=== PATIENT | male | born 1960 | race Two or more races ===

== ENCOUNTER 2018-11-12 19:17 | Emergency (ER) | payer MEDICARE, MEDICAID ==
[~2018-11-12] VITALS: Ht 177.8 cm; Wt 88.5 kg
--- NOTE | 2018-11-12 19:25 | NUR ---
BIBRA81 FROM HOME C/O NR CP WITH SOB. PT IS AAOX4. RR EVEN AND UNLABORED. SKIN WARM AND DRY. PT PLACED ON PRODUCTION MACHINE COMPUTER OPERATOR AND POX. PT SAFETY AND COMFORT MEASURES IN PLACE. BEDSIDE FOR EVAL. GIVEN NITRO X 1 IN FIELD BY EMS. WILL CONITNUE TO MONITOR PT
[2018-11-12] MEDS ORDERED: LORAZEPAM 1 MG TABLET PO ONE (19:30)
[2018-11-12] MEDS ORDERED: LORAZEPAM 1 MG TABLET ONE (19:54)
--- NOTE | 2018-11-12 19:58 | NUR ---
EMT BEDSIDE FOR ECG
--- NOTE | 2018-11-12 20:05 | NUR ---
CLOTH GRADER BEDSIDE FOR BLOOD DRAW
[2018-11-12 20:49] LABS: BASOPHILS % (AUTO) 0.7 % (0.0-2.0); EOSINOPHILS % (AUTO) 0.6 % (0.0-6.0); HEMATOCRIT 43 % (39-51); HEMOGLOBIN 14.7 g/dL (13.5-17.5); LYMPHOCYTES % (AUTO) 36.3 % (20.0-44.0); MEAN CORPUSCULAR HGB CONC 34 g/dl (31.0-36.0); MEAN CORPUSCULAR VOLUME 94 fL (80-96); MONOCYTES # (AUTO) 0.6 /CMM (0.1-1.30); MONOCYTES % (AUTO) 10.5 % (2.0-12.0); NEUTROPHILS # (AUTO) 2.9 /CMM (1.8-8.9); NEUTROPHILS % (AUTO) 51.9 % (43.0-81.0); PLATELET COUNT (AUTO) 181 /CMM (150-450); WHITE BLOOD COUNT (AUTO) 5.5 K/uL (4.3-11.0)
[2018-11-12 21:00] LABS: CALCIUM, SERUM 8.9 mg/dL (8.5-10.1); CARBON DIOXIDE 22 mmol/L (21-32); CHLORIDE 93 mmol/L (98-107); CREATININE 0.9 mg/dL (0.6-1.3); GLUCOSE 104 mg/dL (74-106); POTASSIUM 3.8 mmol/L (3.5-5.1); SODIUM SERUM 124 mmol/L (136-145); UREA NITROGEN, BLOOD 7 mg/dL (7-18)
[2018-11-12] MEDS ORDERED: HYDROCODONE/APAP 10/325MG 1 EA TABLET ONE (21:56)
[2018-11-12] MEDS ORDERED: HYDROCODONE/APAP 10/325MG 1 EA TABLET PO ONE (22:00)
--- NOTE | 2018-11-12 22:40 | NUR ---
DIGITAL FORENSICS EXAMINER BEDSIDE FOR BLOOD DRAW. PT RESTING IN BED WITH NO S/S OF ACUTE DISTRESS
--- NOTE | 2018-11-12 22:55 | NUR ---
PT REFUSED BLOOD DRAW
--- NOTE | 2018-11-12 23:00 | NUR ---
Patient does not wish to proceed with medical care recommended by (GISELLE ). Patient given information related to possible complications, up to and including , which could occur as a result of leaving the hospital at this time. Patient verbalizes understanding of risks involved due to leaving against medical advice. Patient has signed AMA form. PT AMBULATED OUT WITH STEADY GAIT NOTED. MD HERNANDEZ
[2018-11-12 23:25] VITALS: BP 135/84
== END 2018-11-12 23:26 | disposition left against medical advice (07) ==
LOC: ER 19:19
DX: R07.89 Other chest pain (principal); F41.9 Anxiety disorder, unspecified; R06.02 Shortness of breath; I10 Essential (primary) hypertension; E11.9 Type 2 diabetes mellitus without complications; I25.2 Old myocardial infarction; Z95.818 Presence of other cardiac implants and grafts; Z88.6 Allergy status to analgesic agent; Z60.2 Problems related to living alone; Z85.818 Personal history of malignant neoplasm of other sites of lip, oral cavity, and pharynx
CPT/HCPCS: 36415; 71045-TC; 80048-TC; 84484-TC; 85025-TC; 85730-TC

== ENCOUNTER 2018-12-29 18:00 | Inpatient (IN) | payer MEDICARE, MEDICAID ==
[~2018-12-29] VITALS: Ht 177.8 cm; Wt 86.7 kg
--- NOTE | 2018-12-29 18:00 | NUR ---
BIB RA 82 FROM HOME,ABDOMINAL PAIN TODAY, DIARRHEA X 3 DAYS. TO ER BED 1, HOOKED TO MONITOR, CHANGED TO GOWDeborah, AWAITING MD MENDEZ.
--- NOTE | 2018-12-29 18:10 | NUR ---
ANTOINE TAYLOR AT BEDSIDE
[2018-12-29] MEDS ORDERED: MORPHINE SULFATE INJ 4 MG/ML DISP.SYRIN ONE (18:27)
[2018-12-29] MEDS ORDERED: ONDANSETRON HCL/PF 4 MG/2 ML VIAL ONE (18:27)
[2018-12-29] MEDS ORDERED: MORPHINE SULFATE INJ 2 MG/ML DISP.SYRIN IV ONE (18:30)
[2018-12-29] MEDS ORDERED: ONDANSETRON HCL/PF 4 MG/2 ML VIAL IVP ONE (18:30)
[2018-12-29] MEDS ORDERED: IV NS 0.9% 1,000 ML BAG IV ONE (18:30)
[2018-12-29 18:58] LABS: BASOPHILS % (AUTO) 0.5 % (0.0-2.0); EOSINOPHILS % (AUTO) 0.8 % (0.0-6.0); HEMATOCRIT 43 % (39-51); HEMOGLOBIN 15.1 g/dL (13.5-17.5); LYMPHOCYTES # (AUTO) 2.6 /CMM (0.8-4.8); LYMPHOCYTES % (AUTO) 36.6 % (20.0-44.0); MEAN CORPUSCULAR HGB CONC 35 g/dl (31.0-36.0); MEAN CORPUSCULAR VOLUME 93 fL (80-96); MONOCYTES # (AUTO) 0.9 /CMM (0.1-1.30); MONOCYTES % (AUTO) 12.3 % (2.0-12.0); NEUTROPHILS # (AUTO) 3.5 /CMM (1.8-8.9); NEUTROPHILS % (AUTO) 49.8 % (43.0-81.0); PLATELET COUNT (AUTO) 205 /CMM (150-450); RED BLOOD CELL COUNT(AUTO) 4.62 MIL/uL (4.5-6.0); WHITE BLOOD COUNT (AUTO) 7.1 K/uL (4.3-11.0)
[2018-12-29 19:07] LABS: CALCIUM, SERUM 9.1 mg/dL (8.5-10.1); CARBON DIOXIDE 25 mmol/L (21-32); CHLORIDE 90 mmol/L (98-107); CREATININE 1.4 mg/dL (0.6-1.3); GLUCOSE 120 mg/dL (74-106); POTASSIUM 4.3 mmol/L (3.5-5.1); SODIUM SERUM 122 mmol/L (136-145); UREA NITROGEN, BLOOD 14 mg/dL (7-18)
[2018-12-29 19:13] LABS: ALANINE AMINOTRANSFERASE 29 U/L (12-78); ALKALINE PHOSPHATASE 73 U/L (46-116); ASPARTATE AMINOTRANSFERASE 26 U/L (15-37); BILIRUBIN,DIRECT 0.1 mg/dL (0.0-0.2); BILIRUBIN,TOTAL 0.4 mg/dL (0.2-1.0); LIPASE 232 U/L (73-393); TOTAL PROTEIN, SERUM 7.8 g/dL (6.4-8.2)
[2018-12-29 19:40] LABS: APPEARANCE,URINE Slightly Cloudy (CLEAR); BILIRUBIN,URINE Negative (NEGATIVE); BLOOD, URINE Negative Ery/uL (NEGATIVE); KETONES,URINE Negative (NEGATIVE); LEUKOCYTE ESTERASE ,URINE Negative (NEGATIVE); NITRITE, URINE Negative (NEGATIVE); PH,URINE 6.5 (5.0-8.0); PROTEIN,URINE Negative (NEGATIVE); UGLUCOSE Negative (NEGATIVE); UROBILINOGEN,URINE 0.2 EU/dL (0.2)
[2018-12-29 19:43] LABS: COLOR,URINE Light yellow (YELLOW)
--- NOTE | 2018-12-29 19:46 | NUR ---
PT TAKEN TO CT.
--- NOTE | 2018-12-29 19:50 | NUR ---
REPORT GIVEN TO MÓNICA OGLESBY FOR FIDE
[2018-12-29] MEDS ORDERED: DEXAMETHASONE SOD PHOSPHATE 10 MG/ML VIAL ONE (19:57)
[2018-12-29] MEDS ORDERED: DEXAMETHASONE SOD PHOSPHATE 10 MG in IV D5W 50 ML IV ONE (20:00)
--- NOTE | 2018-12-29 20:16 | NUR ---
PT RESTING IN BED, NAD NOTED. WILL CONTINUE TO MONITOR.
--- NOTE | 2018-12-29 20:50 | NUR ---
XRAY AT BEDSIDE.
--- NOTE | 2018-12-29 20:52 | NUR ---
CALLED HOUSE SUP FOR TELE BED
[2018-12-29] MEDS ORDERED: HYDROMORPHONE 1 MG/1 ML DISP.SYRIN ONE (20:55)
[2018-12-29] MEDS ORDERED: HYDROMORPHONE INJ 0.5 MG/0.5 ML SYRINGE IV ONE (21:00)
--- NOTE | 2018-12-29 21:00 | NUR ---
PT RESTING IN BED, NAD NOTED. WILL CONTINUE TO MONITOR.
--- NOTE | 2018-12-29 21:26 | NUR ---
TELE BED 312-2 GIVEN
--- NOTE | 2018-12-29 21:35 | NUR ---
REPORT GIVEN TO ASHLEY OGLESBY FOR FIDE.
--- NOTE | 2018-12-29 21:48 | NUR ---
DR MCCORMACK WAS PAGED. AWAITING HER RETURN CALL
--- NOTE | 2018-12-29 21:56 | NUR ---
ATTEMPTED TO GET MEDICATION LIST, PT DOES NOT HAVE LIST. PT STATES THE LIST IS IN THE CHART. UNABLE TO LOCATE LIST.
[2018-12-29 22:00] VITALS: BP 133/91
--- NOTE | 2018-12-29 22:00 | NUR ---
ADMISSION NOTES: RECEIVED REPORT FROM MÓNICA OGLESBY. PT BROUGHT TO THE UNIT VIA GURNEY, PT LEGALLY BLIND, CLAIMED TO SPEAK AMHARIC, PORTUGUESE AND CONVERSE WELL IN BELARUSIAN, ON RA, RESPIRATION EVEN AND UNLABORED. C/O ABDL PAIN DESPITE RECEIVING PAIN MEDS IN ER. ORIENTED PT TO UNIT POLICY AND HOURLY ROUNDING. PT ALREADY ASKING FOR FOOD AND PAIN MEDICATION, INFORMED PT THERE WERE NO ORDERS YET AT THIS TIME, WILL UPDATE ONCE THERE'S ADMITTING ORDER FROM MD. INTERVIEWED PT REGARDING HIS JARED MEDICATIONS THERE'S NOTHING INPUTTED BY OCEANOGRAPHY PROFESSOR, ALSO NO LIST FROM ER. PT HANDED HIS OWN TRIUMEQ MEDICINE FOR HIV, INFORMED PT THIS NEEDS TO BE SEND TO PHARMACY IN AM. INFORMED PT THAT HOME MEDS WERE IMPORTANT PART OF THE ASSESSMENT/INTERVIEW SO MD CAN CONTINUE OR DISCONTINUE MEDICATIONS THAT ARE EFFECTIVELY WORK FOR THE CASE. PER PT HE CLAIMED, WE ALREADY HAVE THE LIST IN THE COMPUTER, UPON CHECKING THE PREVIOUS ENCOUNTERS/RECORDS, NOTHING WAS OBTAINED, INFORMED PT ABOUT THIS, PT EXPRESSES HIS DISAPPOINTMENT. HE ALSO AFFIRMLY BELIEVED THAT THE PHARMACIST HAVE HIS MED LIST HE STATED THAT THE PHARMACISTS EVEN TOLD HIM THAT THEY NO LONGER NEED HIS MED LIST BECAUSE THEY ALREADY HAVE COPY. VS TAKEN AND RECORDED BY BLOCKER AND POLISHER GOLD WHEEL, INVENTORY OF BELONGINGS COMPLETED BY BLOCKER AND POLISHER GOLD WHEEL. SKIN ASSESSMENT PERFORMED. PT HAS LEFT ANKLE IV ACCESS G20 ON HL, AREA FREE FROM SWELLING OR BRUISING. PT CLAIMING BOTH OF HIS LEGS ARE PAINFUL WITH LEG CRAMPS, OFFERED WARM BLANKET FOR THE PT. FRANSISCA HUNT WITNESS THROUGHOUT THE CONVERSATION/ADMISSION INTERVIEW DOCUMENTATION. SAFETY PRECAUTIONS FOR FALL INITIATED, CALL LIGHT IN REACH, WILL CONTINUE MONITORING PT.
[2018-12-29 22:15] VITALS: BP 133/91
--- NOTE | 2018-12-29 22:15 | NUR ---
RN NOTES: ALL INFORMATION GATHER FROM INTERVIEWING PT WILL BE UTILIZED TO COMPLETE ADMISSION DOCUMENTATION, WILL ENTER ALL HOME MED LIST OF THE PT. PT ON CARDIAC DIET AND REQUESTING PUDDING AND JUICE, FRANSISCA HUNT PROVIDED SNACK TO THE PT, CONSUMED 100%.
[2018-12-29] MEDS ORDERED: MAG HYDROX/AL HYDROX/SIMETH 30 ML UDC PO PRN (22:30)
[2018-12-29] MEDS ORDERED: MAGNESIUM HYDROXIDE 30 ML UDC PO PRN (22:30)
[2018-12-29] MEDS ORDERED: ACETAMINOPHEN 325 MG TABLET PO PRN (22:30)
[2018-12-29] MEDS ORDERED: ONDANSETRON HCL/PF 4 MG/2 ML VIAL IVP PRN (22:30)
[2018-12-29] MEDS ORDERED: Z GUARD REMEDY 2 OZ OINT TP PRN (22:30)
[2018-12-29] MEDS ORDERED: HYDROCODONE/APAP 5/325MG 1 EACH TABLET PO PRN (22:30)
[2018-12-29] MEDS ORDERED: LISI10TA5 PO (22:53)
[2018-12-29] MEDS ORDERED: [UNRECOGNIZED DRUG - OTHER] PO (22:53)
[2018-12-29] MEDS ORDERED: ABAC1TAB15 PO (22:53)
[2018-12-29] MEDS ORDERED: ZOLP10TA2 PO (22:56)
[2018-12-29] MEDS ORDERED: LORA1TAB PO (22:56)
[2018-12-29] MEDS ORDERED: CARI350T PO (22:56)
[2018-12-29] MEDS ORDERED: ROSU10TA2 PO (22:56)
[2018-12-29] MEDS ORDERED: OXYC-128 PO (22:56)
--- NOTE | 2018-12-29 23:02 | NUR ---
RN NOTES: ASKED PT ABOUT THE HOME MEDICATIONS, HE CLAIMED SOMEONE FROM ER ALREADY ASKED HIM ABOUT IT AND HE GAVE HIS LIST TO THAT CERTAIN HEADING MAKER. INFORMED PT I HAVE NOT RECEIVE ANYTHING FROM ER AND THAT NOTHING WAS ENTERED IN THE COMPUTER. THEN THE PT STATED " THE PHARMACIST KNEW MY MEDICATIONS, BEEN HERE MANY TIMES, AND THEY HAVE MY LIST", INFORMED PT THAT THERE'S NO LIST PROVIDED FROM THE PHARMACY UNLESS SOMEONE ENTER ALL THOSE MEDICATIONS IN THE COMPUTER, BUT SO FAR I HAVE NO INFORMATION. PT CLAIMED HE'S TAKING THE FF MEDS AND WHATEVER MEDS HE FORGOT SOMEONE WILL BRING IT IN AM. LISINOPRIL 10MG PO DAILY CARDIOVERA 10MG PO DAILY CRESTOR 10MG PO DAILY SOMA 350MG TAB PO 3X A DAY FOR MUSCLE CRAMPS OF LEG AND FEET? AMBIEN 10MG PO AT 10PM/HS LORAZEPAM 1MG TAB PO 3X A DAY 8AM/12NOON/6PM(1800) PERCOCET 5/325 MG TAB PO Q4HRS FOR LEG AND FOOT PAIN (PT CLAIMED ITS SCHEDULED Q4, NOT PRN) TRIUMEQ 600/50/300MG TAB DAILY WITH MEALS PT CLAIMED HE'S NOT ALLOWED TO DRINK REGULAR WATER IT DILUTES MORE HIS SODIUM, ONLY JUICE IS ALLOWED ACCORDING TO PT LINOLEUM FLOOR LAYER EPIC MADE AWARE OF ALL THE HOME MED LIST OF THE PATIENT, DIRECTOR SERVICE AWARE
--- NOTE | 2018-12-29 23:30 | NUR ---
RN NOTES: MD DIRECTOR OF ORTHOPEDICS CURRENTLY IN THE UNIT, WENT TO PT'S ROOM, DID H&P, EXPLAIN PLAN OF CARE, PT IN BED, LISTENING, AGREE WITH PLAN OF CARE, NO OTHER COMPLAINTS
[2018-12-30] VITALS (7 sets, daily range): BP systolic 100–131; BP diastolic 61–81
[2018-12-30] MEDS: IV NS 0.9% 1,000 ML IV PRN ×2 (00:03→18:07)
--- NOTE | 2018-12-30 00:05 | NUR ---
PRN NORCO: PT C/O 04/25 ABDL PAIN REQUESTING FOR MEDICATION, PRN NORCO 5/325 MG TAB PO ADMINISTERED AT THIS TIME, WILL CONTINUE TO MONITOR AND REASSESS. PT CLAIMING THAT ER PERSONNEL PROMISED HIM THAT ONCE HE GET TO THE UNIT HE WILL BE RECEIVING MORPHINE INJECTIONS FOR PAIN.
[2018-12-30] MEDS: ENOXAPARIN SODIUM 40 MG/0.4 ML DISP.SYRIN SQ SCH ×2 (00:08→21:07)
--- NOTE | 2018-12-30 00:10 | NUR ---
RN NOTES: NEW ORDERS SEEN IN DEC, WILL REVIEW. PUT IN NEW ORDERS FOR THE PT
--- NOTE | 2018-12-30 00:39 | NUR ---
RN NOTES: RECEIVED CALL FROM PHARM POULTRY PACKER, REGARDING ORDERS FOR THE PT, CLARIFYING IF MD WANTS TO CONTINUE SOMA, PERCOCET,AMBIEN,LORAZEPAM SCHEDULED, SPOKED TO MD POULTRY PACKER, PER MD TO DC NORCO, SOMA, LORAZEPAM, AND CHANGE PERCOCET AND AMBIEN TO PRN ONLY. INFORMED MD THAT PT RECEIVED NORCO AT 0000MN, PER MD TO GIVE NEXT PERCOCET AFTER 6HRS (WILL BE 0600AM). INFORMED MD ABOUT PT ASKING FOR MORPHINE AND THAT SOMEONE FROM ER PROMISE HIM HE WILL RECEIVE IT HERE IN THE FLOOR, PER MD, NO MORPHINE FOR THE PT. PER OKAY TO GIVE SLEEPING PILL NOW FOR THE PT HE'S BEEN REQUESTING FOR IT. EVERYTHING RELAYED TO PHARM POULTRY PACKER.
[2018-12-30] MEDS: ZOLPIDEM TARTRATE 10 MG TABLET PO PRN (01:17)
--- NOTE | 2018-12-30 01:19 | NUR ---
PRN AMBIEN: PT REQUESTED FOR AMBIEN, PER MD VALENCIA TO GIVE, PRN AMBIEN 10MG TAB PO ADMINISTERED AT THIS TIME
--- NOTE | 2018-12-30 01:28 | NUR ---
RN NOTES: PT COMPLAINING OF SO MUCH PAIN, 07/26 ABDOMEN AREA, PAGED GUARD DANCE HALL MD, STATED FROM PREVIOUS CONVERSATION TO GIVE PERCOCET AT 0600AM, CASE CHECKER MADE AWARE
[2018-12-30] MEDS ORDERED: MORPHINE SULFATE INJ 2 MG/ML DISP.SYRIN IV ONE (01:30)
--- NOTE | 2018-12-30 01:34 | NUR ---
RN NOTES: MD PANEL LAY UP WORKER CURRENTLY IN THE UNIT, RELAYED THE PT'S COMPLAIN OF PAIN, PER MD TO GIVE ONE TIME DOSE OF 1MG MORPHINE IVP, SHE STATED THERE WILL BE NO OTHER IV PAIN MEDICATION TO BE GIVEN SCHEDULE,AND SEEMS LIKE PT IS A SEEKER
--- NOTE | 2018-12-30 01:37 | NUR ---
RN NOTES: SPOKED WITH PHARM TILE PRESSER TO VERIFY THE ORDER
--- NOTE | 2018-12-30 01:49 | NUR ---
PRN MORPHINE: ONE TIME ORDER FOR MORPHINE IVP 1MG ADMINISTERED AT THIS TIME. WITNESS BY ANOTHER RN OSMAR. AFTER GIVING THE SAID MEDICATION, PT STATED PLEASE TELL ALAS TO CHANGE MY NURSE, INFORMED PT IT WILL BE RELAYED TO ANIMAL COP.
--- NOTE | 2018-12-30 02:05 | NUR ---
RN CLOSING NOTES: PT REQUESTED FOR A NEW RN, STOREHOUSE CLERK AWARE, WENT TO PT'S ROOM AND SPEAK WITH THE PT. REPORT GIVEN TO ASHLEY OGLESBY FOR CONTINUITY OF CARE.
--- NOTE | 2018-12-30 02:15 | NUR ---
SPEECH THERAPIST NOTE: RECEIVE REPORT FROM RENY STONE FOR CONTINUATION OF CARE. PATIENT RESTING IN BED, NO ACUTE DISTRESS NOTED AT THIS TIME. WILL CONTINUE TO MONITOR.
[2018-12-30] MEDS: oxyCODONE/APAP (5/325 MG) 1 UDTAB TABLET PO PRN ×5 (04:06→22:50)
--- NOTE | 2018-12-30 04:10 | NUR ---
PERCUSSION TUNER NOTE: PATIENT COMPLAINS OF PAIN TO BLE /, PERCOCET 5/325MG 1 TAB ORAL GIVEN PER MD ORDER. WILL CONTINUE TO MONITOR.
--- NOTE | 2018-12-30 06:10 | NUR ---
CIVIL DESIGN TECHNICIAN NOTE: PATIENT RESTING IN BED, NO ACUTE DISTRESS NOTED AT THIS TIME. BREATHING EVEN AND UNLABORED, NO SOB NOTE. IV TO LEFT FOOT IN PLACE, INFUSING NS AT 75ML/HR. BED LOCKED AND IN LOWEST POSITION, CALL LIGHT IN REACH, WILL ENDORSE TO DAY NURSE TO CONTINUE WITH PLAN OF CARE.
[2018-12-30 06:24] LABS: BASOPHILS % (AUTO) 0.1 % (0.0-2.0); HEMATOCRIT 42 % (39-51); HEMOGLOBIN 14.4 g/dL (13.5-17.5); LYMPHOCYTES # (AUTO) 1.4 /CMM (0.8-4.8); LYMPHOCYTES % (AUTO) 19.7 % (20.0-44.0); MEAN CORPUSCULAR HGB CONC 35 g/dl (31.0-36.0); MEAN CORPUSCULAR VOLUME 93 fL (80-96); MONOCYTES # (AUTO) 0.2 /CMM (0.1-1.30); MONOCYTES % (AUTO) 3.2 % (2.0-12.0); NEUTROPHILS # (AUTO) 5.5 /CMM (1.8-8.9); PLATELET COUNT (AUTO) 188 /CMM (150-450); RED BLOOD CELL COUNT(AUTO) 4.47 MIL/uL (4.5-6.0); WHITE BLOOD COUNT (AUTO) 7.1 K/uL (4.3-11.0)
[2018-12-30 06:36] LABS: ALBUMIN 3.8 g/dL (3.4-5.0); BILIRUBIN,TOTAL 0.4 mg/dL (0.2-1.0); CALCIUM, SERUM 9.3 mg/dL (8.5-10.1); CREATININE 1.2 mg/dL (0.6-1.3); MAGNESIUM 1.8 mg/dL (1.8-2.4); PHOSPHORUS 2.8 mg/dL (2.5-4.9); POTASSIUM 5.1 mmol/L (3.5-5.1); TOTAL PROTEIN, SERUM 7.6 g/dL (6.4-8.2)
[2018-12-30 06:43] LABS: FREE PSA 0.13 ng/mL (0.00-45); PROSTATE SPECIFIC ANTIGEN SCR 0.53 ng/mL (0.00-4.00); THYROID STIMULATING HORMONE 0.224 uIU/mL (0.358-3.74)
[2018-12-30] MEDS: METRONIDAZOLE 500 MG TABLET PO SCH ×2 (08:50→16:51)
[2018-12-30] MEDS: CIPROFLOXACIN HCL 500 MG TABLET PO SCH ×2 (08:51→21:06)
[2018-12-30] MEDS: LISINOPRIL (10MG) 10 MG TABLET PO SCH (08:51)
--- NOTE | 2018-12-30 08:57 | NUR ---
PATIENT REFUSED TO GIVE HIS MEDICATION BOTTLES. PER PATIENT, "THE LAST TIME I GAVE IT, IT GOT LOST". NOTIFIED PHARMACIST, EARL, SHE SAID "ITS OK".
[2018-12-30] MEDS: CARVEDILOL 12.5 MG TABLET PO SCH ×2 (08:58→17:00)
[2018-12-30] MEDS ORDERED: CARISOPRODOL 350 MG TABLET PO SCH (09:00)
[2018-12-30] MEDS ORDERED: CARVEDILOL 25 MG TABLET PO SCH (09:00)
[2018-12-30] MEDS ORDERED: PANTOPRAZOLE 40 MG VIAL IV SCH (09:00)
[2018-12-30] MEDS ORDERED: Medication Not On Formulary EA (Rosuvastatin Calcium (Crestor) 1 TAB) PO SCH (09:00)
[2018-12-30] MEDS ORDERED: CARVEDILOL 12.5 MG TABLET PO SCH (09:00)
[2018-12-30] MEDS ORDERED: Abacavir/Dolutegravir/Lamivudi (Triumeq Tablet) PO SCH ×2 (09:00→12:00)
[2018-12-30] MEDS ORDERED: LORAZEPAM 1 MG TABLET PO SCH (09:00)
[2018-12-30] MEDS: PANTOPRAZOLE 40 MG TABLET.DR PO SCH (09:40)
--- NOTE | 2018-12-30 11:51 | NUR ---
dr parker at bedside. talking to the patient. per dr parker, continue home meds soma and ativan as ordered.
[2018-12-30] MEDS: Abacavir/Dolutegravir/Lamivudi (Triumeq Tablet) PO SCH (12:00)
[2018-12-30] MEDS: LORAZEPAM 1 MG TABLET PO PRN ×2 (12:49→21:15)
[2018-12-30] MEDS: CARISOPRODOL 350 MG TABLET PO SCH ×2 (12:49→16:51)
--- NOTE | 2018-12-30 12:58 | NUR ---
rn notes per pharmacist reshma,patient triumeq is . held medication for now. spoke with patient and patient said his daughter will provide it tomorrow. per patient, he spoke with his infectious disease doctor and said that its ok to skip triumeq for a day.
--- NOTE | 2018-12-30 15:44 | NUR ---
URINE SPECIMEN COLLECTED, CALLED LAB FOR MOLDED GOODS EMBOSSING PRESS OPERATOR
[2018-12-30] MEDS ORDERED: ATRO2DRO4 EACHEYE (16:37)
[2018-12-30] MEDS ORDERED: PRED5DRO16 EACHEYE (16:37)
[2018-12-30 17:49] LABS: URINE SODIUM, RANDOM 57 mmol/l (40-220)
[2018-12-30 18:01] LABS: OSMOLALITY,URINE 292 mOS/kg (340-1090)
--- NOTE | 2018-12-30 19:07 | NUR ---
RN CLOSING NOTES PATIENT IN STABLE CONDITION. ALL NEEDS ATTENDED AND PROVIDED. ALL DUE MEDICATIONS ADMINISTERED ORDERED. KEPT PATIENT SAFE AND COMFORTABLE. BED IN LOWEST/LOCKED POSITION, SIDERAILS UPX3, CALL LIGHT IN REACH. ENDORSED TO NIGHT RN FOR FIDE.
--- NOTE | 2018-12-30 19:35 | NUR ---
TELE/RN OPENING NOTES PT RECEIVED AWAKE AND ON THE PHONE. ON ROOM AIR, BREATHING EVEN AND UNLABORED. DENIES SOB, NOTES PAIN 4/10 TO BLE BUT AT A TOLERABLE LEVEL AT THIS TIME. PT IS LEGALLY BLIND. ON TELE MONITOR SHOWING SR WITH BBB AND INVERTED T WAVE, HR 61. IV TO LEFT ANKLE PATENT AND INTACT RUNNING IVF ORDERED. IN NO ACUTE DISTRESS AT THIS TIME. BED IN LOW/LOCKED POSITION WITH CALL LIGHT IN REACH. BILATERAL UPPER SIDE RAILS IN PLACE AND HOB ELEVATED. WILL CONTINUE TO MONITOR
[2018-12-30] MEDS: ATORVASTATIN 10 MG TABLET PO SCH (21:06)
[2018-12-31] VITALS: BP 107/69
[2018-12-31] MEDS: ZOLPIDEM TARTRATE 10 MG TABLET PO PRN ×2 (00:17→23:33)
[2018-12-31 04:00] VITALS: BP 109/65
[2018-12-31] MEDS: oxyCODONE/APAP (5/325 MG) 1 UDTAB TABLET PO PRN ×5 (04:02→22:22)
[2018-12-31] MEDS: LORAZEPAM 1 MG TABLET PO PRN ×3 (05:33→23:02)
[2018-12-31 06:35] LABS: CALCIUM, SERUM 9.2 mg/dL (8.5-10.1); CREATININE 1.2 mg/dL (0.6-1.3); PHOSPHORUS 3.3 mg/dL (2.5-4.9); POTASSIUM 4.5 mmol/L (3.5-5.1)
[2018-12-31] MEDS: IV NS 0.9% 1,000 ML IV PRN ×2 (06:50→21:23)
[2018-12-31] MEDS: PANTOPRAZOLE 40 MG TABLET.DR PO SCH (06:50)
--- NOTE | 2018-12-31 06:59 | NUR ---
TELE/RN CLOSING NOTES PT RESTING COMFORTABLY IN BED. ON ROOM AIR, BREATHING EVEN AND UNLABORED. DENIES SOB AND PAIN AT THIS TIME. ON TELE MONITOR SHOWING SR WITH BBB AND INVERTED T WAVE, HR 60'S. PT WITH NO BM DURING SHIFT, UNABLE TO COLLECT SPECIMEN. IV TO LEFT ANKLE PATENT AND INTACT RUNNING IVF ORDERED. NO SIGNIFICANT CHANGES OVERNIGHT. ALL NEEDS MET. PAIN MANAGED THROUGHOUT SHIFT. BED REMAINS IN LOW/LOCKED POSITION WITH CALL LIGHT IN REACH, BILATERAL UPPER SIDE RAILS IN PLACE. WILL ENDORSE TO DAY SHIFT RN FIDE.
--- NOTE | 2018-12-31 07:00 | NUR ---
SEARCH ENGINE OPTIMIZATION SPECIALIST NOTES PATIENT IN BED ALERT ORIENTED X 4, NO ACUTE DISTRESS NOTED. BREATHING UNLABORED. NO SOB NOTED. DENIED ANY PAIN AT THIS TIME. IV ACCESS PATENT AND INTACT, NO REDNESS OR SWELLING NOTED. SAFETY MEASURES IN PLACE. CALL LIGHT WITHIN REACH. WILL CONTINUE TO MONITOR ACCORDINGLY.
[2018-12-31 07:26] LABS: THYROID STIMULATING HORMONE 1.202 uIU/mL (0.358-3.74); URIC ACID 4.1 mg/dL (2.6-7.2)
[2018-12-31 08:00] VITALS: BP 115/78
[2018-12-31] MEDS: CARISOPRODOL 350 MG TABLET PO SCH ×3 (09:10→17:24)
[2018-12-31] MEDS: METRONIDAZOLE 500 MG TABLET PO SCH ×2 (10:00→17:24)
[2018-12-31] MEDS: CIPROFLOXACIN HCL 500 MG TABLET PO SCH ×2 (10:00→21:42)
[2018-12-31] MEDS: LISINOPRIL (10MG) 10 MG TABLET PO SCH (10:01)
[2018-12-31] MEDS: CARVEDILOL 12.5 MG TABLET PO SCH ×2 (10:01→17:00)
--- NOTE | 2018-12-31 11:03 | NUR ---
MS RN NOTES SEEN AND EVALUATED BY DR ARYA GARCIA WITH NEW ORDERS MADE, NOTED AND CARRIED OUT.
--- NOTE | 2018-12-31 12:25 | NUR ---
MS RENY NOTES PATIENT COMPLAINT OF GENERALIZED PAIN 05/26, OFFERED PAIN MEDICATION, PATIENT REFUSED AT THIS TIME. Addendum: 12/31/18 at 2 by ANDREINA TERRY RN NO ACUTE DISTRESS NOTED. VITAL SIGNS STABLE.
[2018-12-31] MEDS: Abacavir/Dolutegravir/Lamivudi (Triumeq Tablet) PO SCH (12:59)
--- NOTE | 2018-12-31 12:59 | NUR ---
MS RN NOTES MEDICATION TRIUMEQ UNAVAILABLE YET, PER PATIENT DAUGHTER TO BRING HOME MEDICATION, DR RADHA KOENIG AWARE.
--- NOTE | 2018-12-31 13:35 | NUR ---
MS RN NOTES PATIENT SITTING IN BED EATING LUNCH, APPEARS CALM AND COMFORTABLE. NEEDS ATTENDED AND ANTICIPATED. SAFETY MEASURES IN PLACE.CALL LIGHT WITHIN REACH.
--- NOTE | 2018-12-31 13:46 | NUR ---
MS RN NOTES VITAL SIGNS TAKEN WITHIN NORMAL LIMITS.
[2018-12-31 16:00] VITALS: BP 123/72
--- NOTE | 2018-12-31 19:00 | NUR ---
MS RN NOTES PATIENT IN BED ALERT ORIENTED X 4, NO ACUTE DISTRESS NOTED. BREATHING UNLABORED. NO SOB NOTED. IV ACCESS PATENT AND INTACT, NO REDNESS OR SWELLING NOTED. NEEDS ATTENDED AND ANTICIPATED. KEPT CLEAN DRY AND COMFORTABLE. DUE MEDICATIONS GIVEN, NO ASE NOTED. SAFETY MEASURES IN PLACE. CALL LIGHT WITHIN REACH. ENDORSED TO NIGHT NURSE FOR CONTINUITY OF CARE.
--- NOTE | 2018-12-31 19:51 | NUR ---
MS RN NOTES RECEIVED PATIENT AWAKE IN BED WITH NO DISTRESS NOTED. CALL LIGHT WITHIN REACH. NO C/O PAIN OR DISCOMFORT. PERIPHERAL LINE INTACT AND PATENT. BED IN LOW LOCK SETTING. ALL BELONGINGS NEAR BEDSIDE. WILL CONTINUE TO MONITOR.
[2018-12-31 20:00] VITALS: BP 117/69
[2018-12-31] MEDS: ENOXAPARIN SODIUM 40 MG/0.4 ML DISP.SYRIN SQ SCH (21:41)
[2018-12-31] MEDS: ATORVASTATIN 10 MG TABLET PO SCH (21:42)
[2019-01-01] MEDS: oxyCODONE/APAP (5/325 MG) 1 UDTAB TABLET PO PRN ×3 (02:28→10:39)
[2019-01-01 07:13] LABS: CREATININE 1.3 mg/dL (0.6-1.3); MAGNESIUM 1.9 mg/dL (1.8-2.4); PHOSPHORUS 3.5 mg/dL (2.5-4.9)
--- NOTE | 2019-01-01 07:38 | NUR ---
MS RN OPENING NOTES RECEIVED PT RESTING IN BED, AWAKE. A/O X 4, ABLE TO VERBALLY COMMUNICATE; LEGALLY BLIND. TOLERATING RA, WITH NO SIGNS OF ACUTE RESPIRATORY DISTRESS. IVF NS TO LEFT ANKLE G20 AT 75ML/HR, INTACT AND OPERATIONAL. KEPT BED IN LOW, LOCKED POSITION WITH SR X2. CALL LIGHT WITHHIN REACH. WILL CONTINUE PLAN OF CARE.
[2019-01-01 08:00] VITALS: BP 109/79
--- NOTE | 2019-01-01 08:13 | NUR ---
MS RN OPENING NOTES PT RESTING IN BED RESTING. PT A/O X 4, AND ABLE TO MAKE NEEDS KNOWN. PT LEGALLY BLIND. NO SIGNS OF ACUTE RESPIRATORY DISTRESS OR SOB NOTED THROUGHOUT SHIFT. RESPIRATIONS EVEN AND UNLABORED. IVF NS TO LEFT ANKLE G20 AT 75ML/HR, PATENT AND INTACT. BED IN LOW, LOCKED POSITION WITH SR UP X2. CALL LIGHT WITHIN REACH. WILL ENDORSE TO ONCOMING NURSE FOR FIDE.
[2019-01-01] MEDS: METRONIDAZOLE 500 MG TABLET PO SCH (08:15)
[2019-01-01] MEDS: CIPROFLOXACIN HCL 500 MG TABLET PO SCH (08:15)
[2019-01-01] MEDS: PANTOPRAZOLE 40 MG TABLET.DR PO SCH (08:15)
[2019-01-01] MEDS: CARISOPRODOL 350 MG TABLET PO SCH (08:16)
[2019-01-01] MEDS: LORAZEPAM 1 MG TABLET PO PRN (08:16)
[2019-01-01 09:00] VITALS: BP 109/79
[2019-01-01] MEDS: CARVEDILOL 12.5 MG TABLET PO SCH (09:00)
[2019-01-01] MEDS ORDERED: prednisoLONE ACET 1% OPHT DROP 5 ML BOTTLE EACHEYE SCH (09:00)
[2019-01-01] MEDS: LISINOPRIL (10MG) 10 MG TABLET PO SCH (09:00)
[2019-01-01] MEDS ORDERED: ATROPINE SULFATE OPHTH SOLN 15 ML BOTTLE OP SCH (09:00)
--- NOTE | 2019-01-01 12:39 | NUR ---
MS OGLESBYSEAMING INSPECTOR NOTES PT TO DISCHARGE HOME. A/O X 4. TOLERATING RA, WITH NO SIGNS OF ACUTE RESPIRATORY DISTRESS. AMBULATORY. SCHEDULED SOMA GIVEN TO HELP PAIN BEFORE LEAVING THE UNIT. PIV TO LEFT ANKLE G20 REMOVED. REVIEWED AND SIGNED DISCHARGE INSTRUCTIONS AND INVENTORY LIST TO DAUGHTER JUAREZ AND PT. ALL BELONGINGS WITH THE PT. PT AND DAUGHTER ESCORTED TO ELEVATOR TO THE LOBBY. LEFT THE UNIT AT 1130. CN AND AWARE. Addendum: 01/01/19 at 1323 by TREVOR HANSON RN CORRECTION: PT LEFT THE UNIT AT 1230
== END 2019-01-01 12:30 | disposition home or self-care (01) | DRG 391 ==
LOC: ER 18:04 → TELE 21:28 → MED 12-31 11:21
PROVIDERS: ADMIT Registered Nurse; ATTEND Internal Medicine
DX: A08.4 Viral intestinal infection, unspecified (principal); N17.0 Acute kidney failure with tubular necrosis; E22.2 Syndrome of inappropriate secretion of antidiuretic hormone; F11.20 Opioid dependence, uncomplicated; E86.0 Dehydration; I10 Essential (primary) hypertension; I25.2 Old myocardial infarction; E66.9 Obesity, unspecified; Z68.27 Body mass index [BMI] 27.0-27.9, adult; H54.8 Legal blindness, as defined in USA; N40.0 Benign prostatic hyperplasia without lower urinary tract symptoms; Z76.5 Malingerer [conscious simulation]; Z85.01 Personal history of malignant neoplasm of esophagus; E11.9 Type 2 diabetes mellitus without complications; G89.4 Chronic pain syndrome; Z95.5 Presence of coronary angioplasty implant and graft; Z79.899 Other long term (current) drug therapy
CPT/HCPCS: 36415; 70450-TC; 71045-TC; 80048-TC; 80053-TC; 80061-TC; 80076-TC; 81000-TC; 83690-TC; 83735-TC; 83935-TC; 84100-TC; 84153-TC; 84154-TC; 84300-TC; 84443-TC; 84484-TC; 84550-TC; 85025-TC; 87081-TC; G0378; J1100; J1170; J1650; J2270; J2405; J7030; J7042; J7060

== ENCOUNTER 2019-03-28 14:42 | Emergency (ER) | payer MEDICARE, MEDICAID ==
[~2019-03-28] VITALS: Ht 177.8 cm; Wt 86.2 kg
[~2019-03-28 14:42] MED LIST: ABAC1TAB15 PO; ATRO2DRO4 EACHEYE; CARI350T PO; LISI10TA5 PO; LORA1TAB PO; OXYC-128 PO; PRED5DRO16 EACHEYE; ROSU10TA2 PO; ZOLP10TA2 PO; [UNRECOGNIZED DRUG - OTHER] PO
[2019-03-28 14:49] VITALS: BP 108/68
[2019-03-28 15:34] LABS: BASOPHILS % (AUTO) 0.5 % (0.0-2.0); EOSINOPHILS % (AUTO) 0.8 % (0.0-6.0); HEMATOCRIT 46 % (39-51); HEMOGLOBIN 15.7 g/dL (13.5-17.5); MEAN CORPUSCULAR HGB CONC 34 g/dl (31.0-36.0); MEAN CORPUSCULAR VOLUME 93 fL (80-96); MONOCYTES # (AUTO) 0.7 /CMM (0.1-1.30); MONOCYTES % (AUTO) 10.7 % (2.0-12.0); NEUTROPHILS # (AUTO) 3.6 /CMM (1.8-8.9); PLATELET COUNT (AUTO) 195 /CMM (150-450); RED BLOOD CELL COUNT(AUTO) 4.88 MIL/uL (4.5-6.0); WHITE BLOOD COUNT (AUTO) 6.4 K/uL (4.3-11.0)
[2019-03-28] MEDS ORDERED: MORPHINE SULFATE INJ 4 MG/ML DISP.SYRIN ONE (15:59)
[2019-03-28] MEDS ORDERED: ONDANSETRON HCL/PF 4 MG/2 ML VIAL ONE (15:59)
[2019-03-28] MEDS ORDERED: MORPHINE SULFATE INJ 2 MG/ML DISP.SYRIN IV ONE (16:00)
[2019-03-28] MEDS ORDERED: ONDANSETRON HCL/PF - ER 4 MG/2 ML VIAL IV ONE (16:00)
--- NOTE | 2019-03-28 16:05 | NUR ---
PT C/O ABD PAIN & DIARRHEA X 3 DAYS. PT AAOX4, VSS. DENIES CP, SOB, DIZZINESS, N/V AT THIS TIME. PT SEEN & EVAL'D BY DR. SINGH. MEDICATED ORDERED. PT LEONA WELL & WILL CONT TO MONITOR.
[2019-03-28 16:06] LABS: ALBUMIN 3.7 g/dL (3.4-5.0); BILIRUBIN,TOTAL 0.5 mg/dL (0.2-1.0); CALCIUM, SERUM 8.5 mg/dL (8.5-10.1); POTASSIUM 5.3 mmol/L (3.5-5.1); TOTAL PROTEIN, SERUM 7.5 g/dL (6.4-8.2)
[2019-03-28] MEDS ORDERED: IV NS 0.9% 1,000 ML BAG IV ONE ×2 (16:30→17:30)
[2019-03-28] MEDS ORDERED: IOHEXOL-300 100 ML VIAL IV ONE (16:30)
[2019-03-28] MEDS ORDERED: CT SWABBABLE VALVE TRANS SET 1 EA INFUS.SET MC ONE (16:30)
[2019-03-28] MEDS ORDERED: IV NS 0.9% 250 ML IV ONE (16:30)
--- NOTE | 2019-03-28 16:40 | NUR ---
PT TO CT VIA [facility].
--- NOTE | 2019-03-28 18:00 | NUR ---
DR. SINGH EXPLAINED THE RISK & CONSEQUENCES TO PT. PT SIGNED AMA FORM, I OFFERED TO READ THE AMA FORM TO PT BUT PT DECLINED, STS " I UNDERSTOOD EVERYTHING SHE (DR. SINGH) TOLD ME. IV removed. Catheter intact and site benign. Pressure and 4x4 applied to site. No bleeding noted.
== END 2019-03-28 18:09 | disposition left against medical advice (07) ==
LOC: ER 14:44
DX: E87.1 Hypo-osmolality and hyponatremia (principal); R19.7 Diarrhea, unspecified; E87.5 Hyperkalemia; I10 Essential (primary) hypertension; I25.2 Old myocardial infarction; Z95.5 Presence of coronary angioplasty implant and graft; Z85.818 Personal history of malignant neoplasm of other sites of lip, oral cavity, and pharynx; Z98.890 Other specified postprocedural states; Z88.6 Allergy status to analgesic agent
CPT/HCPCS: 36415; 74177; 80048; 80076; 83605; 83690; 85025; 87040 ×2; 96361; 96374; 96375; 99284; J2270; J2405; J7030; J7050; Q9967

== ENCOUNTER 2023-06-20 06:21 | Emergency (ER) | payer MEDICARE, OTHER ==
[~2023-06-20] VITALS: Ht 177.8 cm; Wt 89.8 kg
[~2023-06-20 06:21] MED LIST changes: +HYDR-4384 PO; +LISI10TA29 PO; -LISI10TA5 PO
[2023-06-20] MEDS ORDERED: HYDROCODONE/APAP 10/325MG TABLET ONE (06:42)
[2023-06-20] MEDS ORDERED: LORAZEPAM 1 MG TABLET ONE (06:42)
[2023-06-20] MEDS ORDERED: HYDROCODONE/APAP 10/325MG TABLET PO ONE (07:00)
[2023-06-20] MEDS ORDERED: LORAZEPAM 1 MG TABLET PO ONE (07:00)
[2023-06-20 07:07] VITALS: BP 118/92; TEMP 98.9; O2SAT 98
== END 2023-06-20 07:07 | disposition home or self-care (01) ==
LOC: ER 06:23
DX: G89.29 Other chronic pain (principal); I10 Essential (primary) hypertension; Z79.899 Other long term (current) drug therapy; Z98.890 Other specified postprocedural states; Z88.1 Allergy status to other antibiotic agents

== ENCOUNTER 2023-08-05 05:39 | Emergency (ER) | payer MEDICARE, OTHER ==
[~2023-08-05] VITALS: Ht 177.8 cm; Wt 90.7 kg
[2023-08-05] MEDS ORDERED: MORPHINE SULFATE INJ 2 MG/ML DISP.SYRIN IM ONE (07:00)
[2023-08-05] MEDS ORDERED: ONDANSETRON 4 MG TAB.RAPDIS SL ONE (07:00)
[2023-08-05] MEDS ORDERED: MORPHINE SULFATE INJ 4 MG/ML DISP.SYRIN ONE (07:07)
[2023-08-05] MEDS ORDERED: ONDANSETRON 4 MG TAB.RAPDIS ONE (07:07)
[2023-08-05] MEDS ORDERED: LIDO30AD10 TP (07:17)
[2023-08-05 07:31] VITALS: BP 122/72; TEMP 98.5; O2SAT 98
== END 2023-08-05 08:42 | disposition home or self-care (01) ==
LOC: ER 05:44
DX: G89.29 Other chronic pain (principal); M54.41 Lumbago with sciatica, right side; I10 Essential (primary) hypertension; E78.5 Hyperlipidemia, unspecified; I25.2 Old myocardial infarction; Z88.8 Allergy status to other drugs, medicaments and biological substances; Z79.899 Other long term (current) drug therapy
CPT/HCPCS: 99283; 96372; J2270; Q0162

== ENCOUNTER 2023-11-06 19:25 | Emergency (ER) | payer MEDICARE, OTHER ==
[~2023-11-06] VITALS: Ht 177.8 cm; Wt 86.2 kg
[~2023-11-06 19:25] MED LIST changes: +LIDO30AD10 TP
[2023-11-06 20:07] VITALS: TEMP 98
[2023-11-06] MEDS ORDERED: ACETAMINOPHEN ES 500 MG TABLET ONE (21:11)
[2023-11-06] MEDS: ACETAMINOPHEN ES 500 MG TABLET PO ONE (21:14)
[2023-11-06] MEDS ORDERED: HYDROCODONE/APAP 5/325MG TABLET ONE (21:25)
[2023-11-06] MEDS: HYDROCODONE/APAP 5/325MG TABLET PO ONE (21:28)
[2023-11-06 22:39] LABS: APPEARANCE,URINE CLEAR (CLEAR); BILIRUBIN,URINE NEGATIVE (NEGATIVE); BLOOD, URINE TRACE-INTA Ery/uL (NEGATIVE); COLOR,URINE YELLOW (YELLOW); KETONES,URINE NEGATIVE (NEGATIVE); LEUKOCYTE ESTERASE ,URINE NEGATIVE (NEGATIVE); NITRITE, URINE NEGATIVE (NEGATIVE); PROTEIN,URINE NEGATIVE (NEGATIVE); UGLUCOSE NEGATIVE (NEGATIVE); UROBILINOGEN,URINE 0.2 EU/dL (0.2)
[2023-11-06 22:41] VITALS: BP 116/81; O2SAT 100
[2023-11-06 22:52] LABS: ADD URINE CULTURE NO; BACTERIA,URINE Rare /HPF (None Seen); RBC,URINE 0-2 /HPF (0-2); SQUAMOUS EPITHELIAL CELL,UR None Seen /HPF (None Seen); WBC,URINE NONE SEEN /HPF (0-3)
== END 2023-11-06 22:42 | disposition home or self-care (01) ==
LOC: ER 19:26
DX: D29.1 Benign neoplasm of prostate (principal); N50.811 Right testicular pain; I10 Essential (primary) hypertension; E78.5 Hyperlipidemia, unspecified; I25.2 Old myocardial infarction; Z88.8 Allergy status to other drugs, medicaments and biological substances; Z79.899 Other long term (current) drug therapy
CPT/HCPCS: 76870-TC; 81001

== ENCOUNTER 2023-12-23 01:06 | Emergency (ER) | payer MEDICARE, OTHER ==
[~2023-12-23] VITALS: Ht 177.8 cm; Wt 77.1 kg
[2023-12-23 01:20] VITALS: BP 138/72; TEMP 98.8
[2023-12-23] MEDS ORDERED: OXYC-128 PO ×2 (01:24→01:26)
[2023-12-23 01:40] VITALS: O2SAT 100
== END 2023-12-23 01:40 | disposition home or self-care (01) ==
LOC: ER 01:11
DX: G89.29 Other chronic pain (principal); M54.50 Low back pain, unspecified; Z76.0 Encounter for issue of repeat prescription; I10 Essential (primary) hypertension; E78.5 Hyperlipidemia, unspecified; Z98.890 Other specified postprocedural states; Z79.899 Other long term (current) drug therapy; Z88.1 Allergy status to other antibiotic agents

== ENCOUNTER 2023-12-25 16:45 | Inpatient (IN) | payer MEDICARE, OTHER ==
[~2023-12-25] VITALS: Ht 177.8 cm; Wt 85.3 kg
[2023-12-25] MEDS ORDERED: TRAMADOL HCL 50 MG TABLET ONE (17:21)
[2023-12-25] MEDS: IV NS 0.9% 1,000 ML BAG IV ONE (17:24)
[2023-12-25] MEDS: TRAMADOL HCL 50 MG TABLET PO ONE (17:25)
[2023-12-25 17:26] LABS: BASOPHILS # (AUTO) 0.1 K/uL (0.0-0.2); BASOPHILS % (AUTO) 0.4 % (0.0-2.0); EOSINOPHILS % (AUTO) 0.1 % (0.0-6.0); HEMATOCRIT 42 % (39-51); HEMOGLOBIN 14.6 g/dL (13.5-17.5); LYMPHOCYTES # (AUTO) 1.6 K/uL (0.8-4.8); LYMPHOCYTES % (AUTO) 13.5 % (20.0-44.0); MEAN CORPUSCULAR HEMOGLOBIN 34 PG (26.0-33.0); MEAN CORPUSCULAR HGB CONC 35 g/dl (31.0-36.0); MEAN CORPUSCULAR VOLUME 97 fL (80-96); MONOCYTES # (AUTO) 0.9 K/uL (0.1-1.30); MONOCYTES % (AUTO) 7.7 % (2.0-12.0); NEUTROPHILS # (AUTO) 9.1 K/uL (1.8-8.9); NEUTROPHILS % (AUTO) 78.3 % (43.0-81.0); PLATELET COUNT (AUTO) 223 K/uL (150-450); RED BLOOD CELL COUNT(AUTO) 4.33 MIL/uL (4.5-6.0); RED CELL DISTRIBUTION WIDTH 13.7 % (11.5-15.0); WHITE BLOOD COUNT (AUTO) 11.7 K/uL (4.3-11.0)
[2023-12-25 17:58] LABS: CALCIUM, SERUM 10.5 mg/dL (8.5-10.1); CARBON DIOXIDE 21 mmol/L (21-32); CHLORIDE 91 mmol/L (98-107); CREATININE 1.4 mg/dL (0.6-1.3); GLUCOSE 115 mg/dL (74-106); POTASSIUM 4.4 mmol/L (3.5-5.1); SODIUM SERUM 125 mmol/L (136-145); UREA NITROGEN, BLOOD 18 mg/dL (7-18)
[2023-12-25 18:04] LABS: ALANINE AMINOTRANSFERASE 27 U/L (12-78); ALBUMIN 5.1 g/dL (3.4-5.0); ALKALINE PHOSPHATASE 83 U/L (46-116); ASPARTATE AMINOTRANSFERASE 22 U/L (15-37); BILIRUBIN,DIRECT 0.1 mg/dL (0.0-0.2); BILIRUBIN,TOTAL 0.6 mg/dL (0.2-1.0); TOTAL PROTEIN, SERUM 9.2 g/dL (6.4-8.2)
[2023-12-25] MEDS ORDERED: HYDROCODONE/APAP 5/325MG TABLET ONE (18:21)
[2023-12-25] MEDS: HYDROCODONE/APAP 5/325MG TABLET PO ONE (18:28)
[2023-12-25] MEDS ORDERED: LIDOCAINE 5% (PATCH) 1 EA PATCH TP PRN (18:30)
[2023-12-25] MEDS ORDERED: MAGNESIUM HYDROXIDE 30 ML UDC PO PRN (18:30)
[2023-12-25] MEDS ORDERED: ACETAMINOPHEN 325 MG TABLET PO PRN (18:30)
[2023-12-25] MEDS ORDERED: MAG HYDROX/AL HYDROX/SIMETH 30 ML UDC PO PRN (18:30)
[2023-12-25] MEDS ORDERED: ONDANSETRON HCL/PF 4 MG/2 ML VIAL IVP PRN (18:30)
[2023-12-25] MEDS ORDERED: Z GUARD REMEDY 4 OZ OINT TP PRN (18:30)
[2023-12-25] MEDS ORDERED: LORAZEPAM INJ 2 MG/ML VIAL ONE (19:59)
[2023-12-25] MEDS: LORAZEPAM INJ 2 MG/ML VIAL IV ONE (20:01)
[2023-12-25 20:31] LABS: CALCIUM, SERUM 9.7 mg/dL (8.5-10.1); CREATININE 1.5 mg/dL (0.6-1.3); POTASSIUM 3.8 mmol/L (3.5-5.1)
[2023-12-25] MEDS ORDERED: LEVETIRACETAM (500MG) 500 MG/5 ML VIAL IV ONE (20:44)
[2023-12-25] MEDS: LEVETIRACETAM (500MG) 1,000 MG in IV NS 0.9% 90 ML IV SCH (21:04)
[2023-12-25 21:30] VITALS: BP_SYST 106; BP_SYST 109; BP_SYST 130; BP_DIAS 66; BP_DIAS 82; BP_DIAS 98; TEMP 97.8; O2SAT 98
[2023-12-25 21:35] LABS: THYROID STIMULATING HORMONE 3.023 uIU/mL (0.358-3.74)
[2023-12-25] MEDS: IV NS 0.9% 1,000 ML IV PRN (21:53)
[2023-12-25] MEDS: ZOLPIDEM TARTRATE 5 MG TABLET PO PRN (23:15)
[2023-12-26] VITALS: BP 100/63; TEMP 98.6; O2SAT 98
[2023-12-26] MEDS: HYDROCODONE/APAP 10/325MG TABLET PO PRN (02:06)
[2023-12-26 04:00] VITALS: BP 98/67; TEMP 98.5; O2SAT 97
[2023-12-26 07:19] LABS: BASOPHILS # (AUTO) 0.1 K/uL (0.0-0.2); BASOPHILS % (AUTO) 0.5 % (0.0-2.0); EOSINOPHILS % (AUTO) 0.2 % (0.0-6.0); HEMATOCRIT 37 % (39-51); HEMOGLOBIN 12.9 g/dL (13.5-17.5); LYMPHOCYTES # (AUTO) 1.9 K/uL (0.8-4.8); LYMPHOCYTES % (AUTO) 16.2 % (20.0-44.0); MEAN CORPUSCULAR HEMOGLOBIN 34 PG (26.0-33.0); MEAN CORPUSCULAR HGB CONC 35 g/dl (31.0-36.0); MEAN CORPUSCULAR VOLUME 98 fL (80-96); MONOCYTES # (AUTO) 1.4 K/uL (0.1-1.30); MONOCYTES % (AUTO) 11.7 % (2.0-12.0); NEUTROPHILS # (AUTO) 8.3 K/uL (1.8-8.9); NEUTROPHILS % (AUTO) 71.4 % (43.0-81.0); PLATELET COUNT (AUTO) 192 K/uL (150-450); RED CELL DISTRIBUTION WIDTH 13.1 % (11.5-15.0); WHITE BLOOD COUNT (AUTO) 11.6 K/uL (4.3-11.0)
[2023-12-26 07:30] LABS: CALCIUM, SERUM 9.2 mg/dL (8.5-10.1); CREATININE 1.2 mg/dL (0.6-1.3); MAGNESIUM 2.5 mg/dL (1.8-2.4); PHOSPHORUS 2.9 mg/dL (2.5-4.9); POTASSIUM 4.2 mmol/L (3.5-5.1)
[2023-12-26 08:00] VITALS: BP 106/73; TEMP 97.5; O2SAT 99
[2023-12-26] MEDS: LORAZEPAM 1 MG TABLET PO SCH (08:47)
[2023-12-26] MEDS: ATORVASTATIN 40 MG TABLET PO SCH (08:47)
[2023-12-26] MEDS: CARISOPRODOL 350 MG TABLET PO SCH (08:47)
[2023-12-26] MEDS ORDERED: [UNRECOGNIZED DRUG - OTHER] PO SCH (09:00)
[2023-12-26] MEDS: LISINOPRIL (10MG) 10 MG TABLET PO SCH (09:00)
[2023-12-26] MEDS: ATROPINE SULFATE OPHTH SOLN 15 ML BOTTLE EACHEYE SCH (09:01)
[2023-12-26 12:00] VITALS: BP 108/71; TEMP 97.5; O2SAT 94
[2023-12-26 15:46] LABS: ABG BASE EXCESS -13.9 mmol/L; ABG OXYGEN SATURATION 95.3 % (92.0-98.5); ABG PCO2 25.3 mmHg (35.0-45.0); ABG PH 7.266 (7.350-7.450); ABG PO2 87.1 mmHg (75.0-100.0); ABG TOTAL HEMOGLOBIN 14.3 G/dL (13.5-18.0); COHb 0.4 % (0.5-1.5); MetHb 0.2 % (0.0-1.5); O2Hb 94.7 % (94.0-97.0); SITE, ABG Right Radial; VENT MODE, BG ROOM AIR
[2023-12-26 16:00] VITALS: BP 114/43; TEMP 98.3; O2SAT 96
[2023-12-26 20:00] VITALS: BP 114/70; TEMP 98.8; O2SAT 97
[2023-12-27] VITALS: BP 111/79; TEMP 99; O2SAT 97
[2023-12-27 04:00] VITALS: BP 120/73; TEMP 98.3; O2SAT 98
[2023-12-27 07:41] LABS: BASOPHILS # (AUTO) 0.1 K/uL (0.0-0.2); BASOPHILS % (AUTO) 0.5 % (0.0-2.0); EOSINOPHILS # (AUTO) 0.1 K/uL (0.0-0.7); EOSINOPHILS % (AUTO) 0.9 % (0.0-6.0); HEMATOCRIT 37 % (39-51); HEMOGLOBIN 12.9 g/dL (13.5-17.5); LYMPHOCYTES # (AUTO) 2.7 K/uL (0.8-4.8); LYMPHOCYTES % (AUTO) 20.6 % (20.0-44.0); MEAN CORPUSCULAR HEMOGLOBIN 34 PG (26.0-33.0); MEAN CORPUSCULAR HGB CONC 35 g/dl (31.0-36.0); MEAN CORPUSCULAR VOLUME 99 fL (80-96); MONOCYTES # (AUTO) 1.6 K/uL (0.1-1.30); MONOCYTES % (AUTO) 12.1 % (2.0-12.0); NEUTROPHILS # (AUTO) 8.5 K/uL (1.8-8.9); NEUTROPHILS % (AUTO) 65.9 % (43.0-81.0); PLATELET COUNT (AUTO) 195 K/uL (150-450); RED BLOOD CELL COUNT(AUTO) 3.79 MIL/uL (4.5-6.0); RED CELL DISTRIBUTION WIDTH 13.1 % (11.5-15.0); WHITE BLOOD COUNT (AUTO) 12.9 K/uL (4.3-11.0)
[2023-12-27 07:51] LABS: ALBUMIN 3.5 g/dL (3.4-5.0); BILIRUBIN,TOTAL 0.5 mg/dL (0.2-1.0); CREATININE 1.2 mg/dL (0.6-1.3); MAGNESIUM 2.1 mg/dL (1.8-2.4); PHOSPHORUS 3.2 mg/dL (2.5-4.9); POTASSIUM 4.3 mmol/L (3.5-5.1); TOTAL PROTEIN, SERUM 7.2 g/dL (6.4-8.2)
[2023-12-27 08:00] VITALS: BP_SYST 118; BP_SYST 125; BP_SYST 136; BP_DIAS 74; BP_DIAS 78; BP_DIAS 94; TEMP 98.3; O2SAT 98
[2023-12-27 09:08] LABS: FOLIC ACID 10.2 ng/mL (>3.0)
[2023-12-27 10:25] LABS: THYROID STIMULATING HORMONE 2.196 uIU/mL (0.358-3.74); URIC ACID 5.1 mg/dL (2.6-7.2)
[2023-12-27] MEDS ORDERED: LEVETIRACETAM (250 MG) 250 MG TABLET PO SCH (21:00)
[2023-12-28 09:11] LABS: PTH, INTACT 30 pg/mL (15-65)
[2023-12-28 13:07] LABS: *SPE A/G RATIO 1.2 (0.7-1.7); *SPE ALBUMIN 3.6 g/dL (2.9-4.4); *SPE ALPHA-1-GLOBULIN 0.3 g/dL (0.0-0.4); *SPE ALPHA-2-GLOBULIN 0.9 g/dL (0.4-1.0); *SPE BETA GLOBULIN 0.9 g/dL (0.7-1.3); *SPE M-SPIKE Not Observed g/dL (Not Observed); *SPE PROTEIN TOTAL 6.6 g/dL (6.0-8.5); *SPEGAMMA GLOBULIN 0.9 g/dL (0.4-1.8)
== END 2023-12-27 09:59 | disposition left against medical advice (07) | DRG 640 ==
LOC: ER 17:00 → TELE1 19:58
PROVIDERS: ADMIT Nurse Practitioner Acute Care; ATTEND Internal Medicine
DX: E86.1 Hypovolemia (principal); N17.0 Acute kidney failure with tubular necrosis; E87.1 Hypo-osmolality and hyponatremia; D72.829 Elevated white blood cell count, unspecified; E78.5 Hyperlipidemia, unspecified; E86.0 Dehydration; G89.4 Chronic pain syndrome; H54.7 Unspecified visual loss; I25.10 Atherosclerotic heart disease of native coronary artery without angina pectoris; I25.2 Old myocardial infarction; R56.9 Unspecified convulsions; Z95.5 Presence of coronary angioplasty implant and graft; W19.XXXA Unspecified fall, initial encounter; Y93.E1 Activity, personal bathing and showering; Y92.002 Bathroom of unspecified non-institutional (private) residence as the place of occurrence of the external cause; Z79.899 Other long term (current) drug therapy; Z85.819 Personal history of malignant neoplasm of unspecified site of lip, oral cavity, and pharynx; M48.061 Spinal stenosis, lumbar region without neurogenic claudication; I12.9 Hypertensive chronic kidney disease with stage 1 through stage 4 chronic kidney disease, or unspecified chronic kidney disease; N18.9 Chronic kidney disease, unspecified
CPT/HCPCS: 36415; 36600; 70450-TC; 71045-TC; 72148-TC; 80048-TC; 80053-TC; 80061-TC; 80076-TC; 82550-TC; 82553; 82607-TC; 82803-TC; 83735-TC; 83921; 83970; 84100-TC; 84155; 84165; 84443-TC; 84484-TC; 84550-TC; 85025-TC; 93307-TC; 95819-TC; A4223; G0378; J1953; J2060; J7030

== ENCOUNTER 2024-01-29 13:43 | Emergency (ER) | payer MEDICARE, OTHER ==
[~2024-01-29] VITALS: Ht 177.8 cm; Wt 97.5 kg
[~2024-01-29 13:43] MED LIST changes: -HYDR-4384 PO; -PRED5DRO16 EACHEYE
[2024-01-29 13:49] VITALS: TEMP 98
[2024-01-29 14:33] LABS: BASOPHILS % (AUTO) 0.4 % (0.0-2.0); EOSINOPHILS # (AUTO) 0.1 K/uL (0.0-0.7); EOSINOPHILS % (AUTO) 1.1 % (0.0-6.0); HEMATOCRIT 38 % (39-51); HEMOGLOBIN 12.9 g/dL (13.5-17.5); LYMPHOCYTES # (AUTO) 2.4 K/uL (0.8-4.8); LYMPHOCYTES % (AUTO) 26.2 % (20.0-44.0); MEAN CORPUSCULAR HEMOGLOBIN 34 PG (26.0-33.0); MEAN CORPUSCULAR HGB CONC 34 g/dl (31.0-36.0); MEAN CORPUSCULAR VOLUME 100 fL (80-96); MONOCYTES # (AUTO) 0.6 K/uL (0.1-1.30); MONOCYTES % (AUTO) 7.1 % (2.0-12.0); NEUTROPHILS # (AUTO) 5.9 K/uL (1.8-8.9); NEUTROPHILS % (AUTO) 65.2 % (43.0-81.0); PLATELET COUNT (AUTO) 212 K/uL (150-450); RED BLOOD CELL COUNT(AUTO) 3.83 MIL/uL (4.5-6.0); RED CELL DISTRIBUTION WIDTH 13.7 % (11.5-15.0)
[2024-01-29 14:44] LABS: CARBON DIOXIDE 21 mmol/L (21-32); CHLORIDE 93 mmol/L (98-107); CREATININE 1.4 mg/dL (0.6-1.3); GLUCOSE 118 mg/dL (74-106); POTASSIUM 4.4 mmol/L (3.5-5.1); SODIUM SERUM 126 mmol/L (136-145); UREA NITROGEN, BLOOD 13 mg/dL (7-18)
[2024-01-29] MEDS ORDERED: LORAZEPAM INJ 2 MG/ML VIAL ONE (14:51)
[2024-01-29] MEDS: LORAZEPAM INJ 2 MG/ML VIAL IV ONE (14:52)
[2024-01-29] MEDS ORDERED: SODI1TAB66 PO (16:02)
[2024-01-29] MEDS ORDERED: PRED5DRO4 EACHEYE (16:02)
[2024-01-29] MEDS ORDERED: BIMA2.5D5 EACHEYE (16:02)
[2024-01-29] MEDS ORDERED: CARV10CP7 PO (16:04)
[2024-01-29] MEDS ORDERED: LORA-259 PO ×2 (16:52→16:54)
[2024-01-29 17:03] VITALS: BP 116/80; O2SAT 98
== END 2024-01-29 17:04 | disposition home or self-care (01) ==
LOC: ER 13:43
DX: F41.9 Anxiety disorder, unspecified (principal); R07.89 Other chest pain; I10 Essential (primary) hypertension; Z88.1 Allergy status to other antibiotic agents; Z79.899 Other long term (current) drug therapy
CPT/HCPCS: 99285; 96374; 71045; 93005; 85025; 80048; 36415; 84484 ×2; J2060

== ENCOUNTER 2024-03-15 03:13 | Emergency (ER) | payer MEDICARE, OTHER ==
[~2024-03-15] VITALS: Ht 175.3 cm; Wt 77.1 kg
[~2024-03-15 03:13] MED LIST changes: -ATRO2DRO4 EACHEYE; +BIMA2.5D5 EACHEYE; -CARI350T PO; +CARV10CP7 PO; -LIDO30AD10 TP; +LORA-259 PO; -LORA1TAB PO; -OXYC-128 PO; +PRED5DRO4 EACHEYE; +SODI1TAB66 PO; -ZOLP10TA2 PO; -[UNRECOGNIZED DRUG - OTHER] PO
[2024-03-15] MEDS ORDERED: oxyCODONE/APAP (5/325 MG) 1 UDTAB TABLET ONE (05:05)
[2024-03-15] MEDS: oxyCODONE/APAP (5/325 MG) 1 UDTAB TABLET PO ONE (05:06)
[2024-03-15 05:23] LABS: BASOPHILS % (AUTO) 0.7 % (0.0-2.0); EOSINOPHILS # (AUTO) 0.1 K/uL (0.0-0.7); EOSINOPHILS % (AUTO) 0.9 % (0.0-6.0); HEMATOCRIT 41 % (39-51); HEMOGLOBIN 14.2 g/dL (13.5-17.5); LYMPHOCYTES # (AUTO) 2.5 K/uL (0.8-4.8); LYMPHOCYTES % (AUTO) 40.4 % (20.0-44.0); MEAN CORPUSCULAR HEMOGLOBIN 34 PG (26.0-33.0); MEAN CORPUSCULAR HGB CONC 35 g/dl (31.0-36.0); MEAN CORPUSCULAR VOLUME 97 fL (80-96); MONOCYTES # (AUTO) 0.6 K/uL (0.1-1.30); MONOCYTES % (AUTO) 9.3 % (2.0-12.0); NEUTROPHILS % (AUTO) 48.7 % (43.0-81.0); PLATELET COUNT (AUTO) 187 K/uL (150-450); RED BLOOD CELL COUNT(AUTO) 4.22 MIL/uL (4.5-6.0); RED CELL DISTRIBUTION WIDTH 14.7 % (11.5-15.0); WHITE BLOOD COUNT (AUTO) 6.1 K/uL (4.3-11.0)
[2024-03-15 05:26] LABS: APPEARANCE,URINE CLEAR (CLEAR); BILIRUBIN,URINE NEGATIVE (NEGATIVE); BLOOD, URINE NEGATIVE Ery/uL (NEGATIVE); COLOR,URINE YELLOW (YELLOW); KETONES,URINE NEGATIVE (NEGATIVE); LEUKOCYTE ESTERASE ,URINE NEGATIVE (NEGATIVE); NITRITE, URINE NEGATIVE (NEGATIVE); PH,URINE 6.5 (5.0-8.0); PROTEIN,URINE NEGATIVE (NEGATIVE); UGLUCOSE NEGATIVE (NEGATIVE); UROBILINOGEN,URINE 0.2 EU/dL (0.2)
[2024-03-15 05:29] LABS: CALCIUM, SERUM 9.2 mg/dL (8.5-10.1); CREATININE 1.3 mg/dL (0.6-1.3); POTASSIUM 3.5 mmol/L (3.5-5.1)
[2024-03-15 05:35] LABS: ALBUMIN 3.5 g/dL (3.4-5.0); BILIRUBIN,DIRECT 0.1 mg/dL (0.0-0.2); BILIRUBIN,TOTAL 0.5 mg/dL (0.2-1.0); TOTAL PROTEIN, SERUM 7.2 g/dL (6.4-8.2)
[2024-03-15] MEDS ORDERED: FAMO20TA80 PO (05:47)
[2024-03-15] MEDS ORDERED: OXYC-133 PO (05:56)
[2024-03-15] MEDS ORDERED: FAMOTIDINE (20 MG) 20 MG TABLET ONE (05:57)
[2024-03-15] MEDS: FAMOTIDINE (20 MG) 20 MG TABLET PO ONE (05:58)
[2024-03-15] MEDS ORDERED: FAMOTIDINE/PF INJ 20 MG/2 ML VIAL IV ONE (06:00)
[2024-03-15 06:10] VITALS: BP 122/76; TEMP 98.9; O2SAT 99
== END 2024-03-15 06:11 | disposition home or self-care (01) ==
LOC: ER 04:10
DX: G89.29 Other chronic pain (principal); K21.9 Gastro-esophageal reflux disease without esophagitis; H54.7 Unspecified visual loss; I10 Essential (primary) hypertension; Z86.79 Personal history of other diseases of the circulatory system; Z88.8 Allergy status to other drugs, medicaments and biological substances
CPT/HCPCS: 36415; 80048-TC; 80076-TC; 83690-TC; 85025-TC

== ENCOUNTER 2024-04-11 18:15 | Inpatient (IN) | payer MEDICARE, OTHER ==
[~2024-04-11] VITALS: Ht 180.3 cm; Wt 86.6 kg
[~2024-04-11 18:15] MED LIST changes: +FAMO20TA80 PO; +OXYC-133 PO
[2024-04-11] MEDS: ASPIRIN 325 MG TABLET PO ONE (18:54)
[2024-04-11 18:55] LABS: BASOPHILS % (AUTO) 0.3 % (0.0-2.0); EOSINOPHILS % (AUTO) 0.5 % (0.0-6.0); HEMATOCRIT 45 % (39-51); HEMOGLOBIN 15.2 g/dL (13.5-17.5); LYMPHOCYTES # (AUTO) 2.2 K/uL (0.8-4.8); LYMPHOCYTES % (AUTO) 25.5 % (20.0-44.0); MEAN CORPUSCULAR HEMOGLOBIN 33 PG (26.0-33.0); MEAN CORPUSCULAR HGB CONC 34 g/dl (31.0-36.0); MEAN CORPUSCULAR VOLUME 97 fL (80-96); MONOCYTES # (AUTO) 0.7 K/uL (0.1-1.30); MONOCYTES % (AUTO) 8.8 % (2.0-12.0); NEUTROPHILS # (AUTO) 5.5 K/uL (1.8-8.9); NEUTROPHILS % (AUTO) 64.9 % (43.0-81.0); PLATELET COUNT (AUTO) 199 K/uL (150-450); RED BLOOD CELL COUNT(AUTO) 4.64 MIL/uL (4.5-6.0); RED CELL DISTRIBUTION WIDTH 14.8 % (11.5-15.0); WHITE BLOOD COUNT (AUTO) 8.5 K/uL (4.3-11.0)
[2024-04-11] MEDS: NITROGLYCERIN 0.4 MG/TAB BOTTLE SL ONE (18:59)
[2024-04-11 19:10] LABS: CALCIUM, SERUM 10.5 mg/dL (8.5-10.1); CARBON DIOXIDE 23 mmol/L (21-32); CHLORIDE 102 mmol/L (98-107); CREATININE 1.9 mg/dL (0.6-1.3); GLUCOSE 132 mg/dL (74-106); POTASSIUM 4.5 mmol/L (3.5-5.1); SODIUM SERUM 134 mmol/L (136-145); UREA NITROGEN, BLOOD 25 mg/dL (7-18)
[2024-04-11 19:23] LABS: NT-PRO BNP 146 pg/mL (0-125)
[2024-04-11] MEDS: IV NS 0.9% 1,000 ML BAG IV ONE (20:06)
[2024-04-11] MEDS ORDERED: ENOXAPARIN SODIUM 30 MG/0.3 ML DISP.SYRIN ONE (20:07)
[2024-04-11] MEDS ORDERED: ENOXAPARIN SODIUM 60 MG/0.6 ML DISP.SYRIN SQ ONE (20:08)
[2024-04-11] MEDS ORDERED: MIDODRINE HCL (5MG) 5 MG TABLET ONE (20:08)
[2024-04-11] MEDS: ENOXAPARIN SODIUM 80 MG/0.8 ML DISP.SYRIN SQ ONE (20:09)
[2024-04-11] MEDS: MIDODRINE HCL (5MG) 5 MG TABLET PO STA (20:14)
[2024-04-11 22:00] VITALS: BP 116/80; TEMP 98.1; O2SAT 98
[2024-04-11] MEDS ORDERED: MAG HYDROX/AL HYDROX/SIMETH 30 ML UDC PO PRN (23:00)
[2024-04-11] MEDS ORDERED: NITROGLYCERIN 0.4 MG/TAB BOTTLE SL PRN (23:00)
[2024-04-11] MEDS ORDERED: MAGNESIUM HYDROXIDE 30 ML UDC PO PRN (23:00)
[2024-04-11] MEDS ORDERED: Z GUARD REMEDY 4 OZ OINT TP PRN (23:00)
[2024-04-11] MEDS ORDERED: ONDANSETRON HCL/PF 4 MG/2 ML VIAL IVP PRN (23:00)
[2024-04-11] MEDS ORDERED: FAMOTIDINE (20 MG) 20 MG TABLET PO PRN (23:00)
[2024-04-12] VITALS (8 sets, daily range): BP systolic 86–115; BP diastolic 49–83; TEMP 98.1–98.8; O2SAT 95–99
[2024-04-12] MEDS: oxyCODONE/APAP (5/325 MG) 1 UDTAB TABLET PO PRN (03:06)
[2024-04-12 07:01] LABS: BASOPHILS % (AUTO) 0.6 % (0.0-2.0); EOSINOPHILS % (AUTO) 0.6 % (0.0-6.0); HEMATOCRIT 43 % (39-51); HEMOGLOBIN 14.8 g/dL (13.5-17.5); LYMPHOCYTES # (AUTO) 2.2 K/uL (0.8-4.8); LYMPHOCYTES % (AUTO) 33.3 % (20.0-44.0); MEAN CORPUSCULAR HEMOGLOBIN 34 PG (26.0-33.0); MEAN CORPUSCULAR HGB CONC 35 g/dl (31.0-36.0); MEAN CORPUSCULAR VOLUME 97 fL (80-96); MONOCYTES # (AUTO) 0.6 K/uL (0.1-1.30); MONOCYTES % (AUTO) 8.5 % (2.0-12.0); NEUTROPHILS # (AUTO) 3.8 K/uL (1.8-8.9); PLATELET COUNT (AUTO) 174 K/uL (150-450); RED BLOOD CELL COUNT(AUTO) 4.42 MIL/uL (4.5-6.0); RED CELL DISTRIBUTION WIDTH 14.8 % (11.5-15.0); WHITE BLOOD COUNT (AUTO) 6.6 K/uL (4.3-11.0)
[2024-04-12 07:25] LABS: THYROID STIMULATING HORMONE 0.74 uIU/mL (0.358-3.74)
[2024-04-12 07:28] LABS: ALBUMIN 3.6 g/dL (3.4-5.0); BILIRUBIN,DIRECT 0.2 mg/dL (0.0-0.2); BILIRUBIN,TOTAL 0.7 mg/dL (0.2-1.0); CALCIUM, SERUM 9.6 mg/dL (8.5-10.1); CREATININE 1.5 mg/dL (0.6-1.3); MAGNESIUM 2.4 mg/dL (1.8-2.4); POTASSIUM 4.1 mmol/L (3.5-5.1); TOTAL PROTEIN, SERUM 7.4 g/dL (6.4-8.2)
[2024-04-12] MEDS: SODIUM CHLORIDE 1000 MG TABLET PO SCH (08:59)
[2024-04-12] MEDS: ASPIRIN 325 MG TABLET PO SCH (08:59)
[2024-04-12] MEDS: PANTOPRAZOLE 40 MG TABLET.DR PO SCH (08:59)
[2024-04-12] MEDS: ATORVASTATIN 40 MG TABLET PO SCH (08:59)
[2024-04-12] MEDS: LISINOPRIL (10MG) 10 MG TABLET PO SCH (09:00)
[2024-04-12] MEDS: prednisoLONE ACET 1% OPHT DROP 5 ML BOTTLE EACHEYE SCH (09:52)
[2024-04-12] MEDS ORDERED: LORAZEPAM 1 MG TABLET PO PRN (11:00)
[2024-04-12] MEDS: LORAZEPAM 1 MG TABLET PO PRN (11:11)
[2024-04-12] MEDS: CARVEDILOL 3.125 MG TABLET PO SCH (16:27)
[2024-04-12] MEDS: LATANOPROST EYE DROP 0.005% 2.5 ML BOTTLE OP SCH (17:11)
[2024-04-12] MEDS: ENOXAPARIN SODIUM 40 MG/0.4 ML DISP.SYRIN SQ SCH (20:33)
[2024-04-13 04:49] VITALS: BP 97/62; TEMP 97.6; O2SAT 98
[2024-04-13 07:01] LABS: BASOPHILS % (AUTO) 0.7 % (0.0-2.0); EOSINOPHILS # (AUTO) 0.1 K/uL (0.0-0.7); EOSINOPHILS % (AUTO) 1.6 % (0.0-6.0); HEMATOCRIT 41 % (39-51); HEMOGLOBIN 13.9 g/dL (13.5-17.5); LYMPHOCYTES # (AUTO) 2.5 K/uL (0.8-4.8); LYMPHOCYTES % (AUTO) 37.2 % (20.0-44.0); MEAN CORPUSCULAR HEMOGLOBIN 33 PG (26.0-33.0); MEAN CORPUSCULAR HGB CONC 34 g/dl (31.0-36.0); MEAN CORPUSCULAR VOLUME 97 fL (80-96); MONOCYTES # (AUTO) 0.6 K/uL (0.1-1.30); MONOCYTES % (AUTO) 8.3 % (2.0-12.0); NEUTROPHILS # (AUTO) 3.5 K/uL (1.8-8.9); NEUTROPHILS % (AUTO) 52.2 % (43.0-81.0); PLATELET COUNT (AUTO) 181 K/uL (150-450); RED BLOOD CELL COUNT(AUTO) 4.27 MIL/uL (4.5-6.0); RED CELL DISTRIBUTION WIDTH 14.7 % (11.5-15.0); WHITE BLOOD COUNT (AUTO) 6.7 K/uL (4.3-11.0)
[2024-04-13 07:54] LABS: ALBUMIN 3.5 g/dL (3.4-5.0); BILIRUBIN,TOTAL 0.4 mg/dL (0.2-1.0); CALCIUM, SERUM 9.4 mg/dL (8.5-10.1); CREATININE 1.5 mg/dL (0.6-1.3); MAGNESIUM 2.1 mg/dL (1.8-2.4); POTASSIUM 4.5 mmol/L (3.5-5.1); TOTAL PROTEIN, SERUM 7.2 g/dL (6.4-8.2)
[2024-04-13 08:41] VITALS: BP 122/84; TEMP 98.6; O2SAT 95
[2024-04-13 12:28] VITALS: BP 109/80; TEMP 98; O2SAT 97
[2024-04-13 16:24] VITALS: BP 121/73; TEMP 98.1; O2SAT 96
[2024-04-13] MEDS: ACETAMINOPHEN 325 MG TABLET PO PRN (16:51)
[2024-04-13 20:00] VITALS: BP 127/79; TEMP 98.4; O2SAT 99
[2024-04-13] MEDS: ABACAVIR PO SCH (20:14)
[2024-04-13] MEDS: LAMIVUDI PO SCH (20:14)
[2024-04-13] MEDS: DOLUTEGRAVIR PO SCH (20:14)
[2024-04-13] MEDS: ZOLPIDEM TARTRATE 5 MG TABLET PO PRN (22:15)
[2024-04-14] VITALS: BP 99/61; TEMP 98.1; O2SAT 100
[2024-04-14 04:00] VITALS: BP 111/73; TEMP 97.8; O2SAT 96
[2024-04-14 06:58] LABS: BASOPHILS % (AUTO) 0.6 % (0.0-2.0); EOSINOPHILS # (AUTO) 0.1 K/uL (0.0-0.7); EOSINOPHILS % (AUTO) 1.8 % (0.0-6.0); HEMATOCRIT 41 % (39-51); HEMOGLOBIN 14.2 g/dL (13.5-17.5); LYMPHOCYTES # (AUTO) 2.6 K/uL (0.8-4.8); LYMPHOCYTES % (AUTO) 34.9 % (20.0-44.0); MEAN CORPUSCULAR HEMOGLOBIN 33 PG (26.0-33.0); MEAN CORPUSCULAR HGB CONC 35 g/dl (31.0-36.0); MEAN CORPUSCULAR VOLUME 96 fL (80-96); MONOCYTES # (AUTO) 0.6 K/uL (0.1-1.30); MONOCYTES % (AUTO) 7.7 % (2.0-12.0); NEUTROPHILS # (AUTO) 4.2 K/uL (1.8-8.9); PLATELET COUNT (AUTO) 189 K/uL (150-450); RED BLOOD CELL COUNT(AUTO) 4.27 MIL/uL (4.5-6.0); RED CELL DISTRIBUTION WIDTH 14.5 % (11.5-15.0); WHITE BLOOD COUNT (AUTO) 7.6 K/uL (4.3-11.0)
[2024-04-14 07:07] LABS: PTH, INTACT 35 pg/mL (15-65)
[2024-04-14 07:21] LABS: CALCIUM, SERUM 9.5 mg/dL (8.5-10.1); CREATININE 1.4 mg/dL (0.6-1.3); PHOSPHORUS 2.3 mg/dL (2.5-4.9)
[2024-04-14 08:00] VITALS: BP 122/80; TEMP 98.4; O2SAT 98
[2024-04-14] MEDS: NEUTRA PHOS 1 POWD.PACKET PO SCH (09:05)
[2024-04-14 12:00] VITALS: BP 114/69; TEMP 98.4; O2SAT 100
[2024-04-14 16:00] VITALS: BP 143/96; TEMP 99.3; O2SAT 97
[2024-04-15 07:30] VITALS: BP 121/87; TEMP 98.1; O2SAT 96
[2024-04-15 07:48] LABS: BASOPHILS # (AUTO) 0.1 K/uL (0.0-0.2); BASOPHILS % (AUTO) 0.8 % (0.0-2.0); EOSINOPHILS # (AUTO) 0.1 K/uL (0.0-0.7); EOSINOPHILS % (AUTO) 1.5 % (0.0-6.0); HEMATOCRIT 42 % (39-51); HEMOGLOBIN 14.2 g/dL (13.5-17.5); LYMPHOCYTES # (AUTO) 2.7 K/uL (0.8-4.8); LYMPHOCYTES % (AUTO) 37.2 % (20.0-44.0); MEAN CORPUSCULAR HEMOGLOBIN 32 PG (26.0-33.0); MEAN CORPUSCULAR HGB CONC 34 g/dl (31.0-36.0); MEAN CORPUSCULAR VOLUME 96 fL (80-96); MONOCYTES # (AUTO) 0.7 K/uL (0.1-1.30); MONOCYTES % (AUTO) 9.3 % (2.0-12.0); NEUTROPHILS # (AUTO) 3.8 K/uL (1.8-8.9); NEUTROPHILS % (AUTO) 51.2 % (43.0-81.0); PLATELET COUNT (AUTO) 194 K/uL (150-450); RED BLOOD CELL COUNT(AUTO) 4.38 MIL/uL (4.5-6.0); RED CELL DISTRIBUTION WIDTH 14.2 % (11.5-15.0); WHITE BLOOD COUNT (AUTO) 7.3 K/uL (4.3-11.0)
[2024-04-15 08:07] LABS: ALBUMIN 3.4 g/dL (3.4-5.0); BILIRUBIN,TOTAL 0.5 mg/dL (0.2-1.0); CALCIUM, SERUM 9.8 mg/dL (8.5-10.1); CREATININE 1.3 mg/dL (0.6-1.3); MAGNESIUM 2.2 mg/dL (1.8-2.4); PHOSPHORUS 3.1 mg/dL (2.5-4.9); POTASSIUM 4.2 mmol/L (3.5-5.1); TOTAL PROTEIN, SERUM 7.3 g/dL (6.4-8.2)
[2024-04-15] MEDS: SODIUM CHLORIDE 1000 MG TABLET PO SCH (10:04)
[2024-04-15 20:00] VITALS: BP 129/81; TEMP 97.9; O2SAT 96
[2024-04-15 20:09] VITALS: BP 129/81; TEMP 97.9; O2SAT 98
[2024-04-15] MEDS: oxyCODONE/APAP (5/325 MG) 1 UDTAB TABLET PO PRN (21:22)
[2024-04-15] MEDS: NYSTATIN (PYXIS) 500,000 UNIT/5 ML ORAL.SUSP PO SCH (22:14)
[2024-04-16] VITALS: BP 104/65; TEMP 97.9; O2SAT 97
[2024-04-16 00:31] VITALS: BP 104/65; TEMP 97.9; O2SAT 97
[2024-04-16 04:06] VITALS: BP 126/83; TEMP 97.9; O2SAT 97
[2024-04-16 04:10] VITALS: BP 126/83; TEMP 97.9; O2SAT 97
[2024-04-16 07:08] LABS: BASOPHILS # (AUTO) 0.1 K/uL (0.0-0.2); BASOPHILS % (AUTO) 0.6 % (0.0-2.0); EOSINOPHILS # (AUTO) 0.1 K/uL (0.0-0.7); EOSINOPHILS % (AUTO) 1.1 % (0.0-6.0); HEMATOCRIT 42 % (39-51); HEMOGLOBIN 14.1 g/dL (13.5-17.5); LYMPHOCYTES # (AUTO) 2.8 K/uL (0.8-4.8); LYMPHOCYTES % (AUTO) 28.4 % (20.0-44.0); MEAN CORPUSCULAR HEMOGLOBIN 33 PG (26.0-33.0); MEAN CORPUSCULAR HGB CONC 34 g/dl (31.0-36.0); MEAN CORPUSCULAR VOLUME 97 fL (80-96); MONOCYTES # (AUTO) 0.9 K/uL (0.1-1.30); MONOCYTES % (AUTO) 9.7 % (2.0-12.0); NEUTROPHILS # (AUTO) 5.9 K/uL (1.8-8.9); NEUTROPHILS % (AUTO) 60.2 % (43.0-81.0); PLATELET COUNT (AUTO) 206 K/uL (150-450); RED BLOOD CELL COUNT(AUTO) 4.34 MIL/uL (4.5-6.0); RED CELL DISTRIBUTION WIDTH 14.5 % (11.5-15.0); WHITE BLOOD COUNT (AUTO) 9.8 K/uL (4.3-11.0)
[2024-04-16 07:29] LABS: ALBUMIN 3.4 g/dL (3.4-5.0); BILIRUBIN,TOTAL 0.3 mg/dL (0.2-1.0); CALCIUM, SERUM 9.9 mg/dL (8.5-10.1); CREATININE 1.3 mg/dL (0.6-1.3); MAGNESIUM 2.2 mg/dL (1.8-2.4); PHOSPHORUS 2.9 mg/dL (2.5-4.9); POTASSIUM 4.7 mmol/L (3.5-5.1); TOTAL PROTEIN, SERUM 7.3 g/dL (6.4-8.2)
[2024-04-16 08:16] VITALS: BP 124/84; TEMP 98.4; O2SAT 97
[2024-04-16 09:27] LABS: INR 0.97 (0.91-1.10); PARTIAL THROMBOPLASTIN TIME 27.1 SEC (24.3-34.3); PROTHROMBIN TIME 10.3 SECS (9.2-11.1)
[2024-04-16] MEDS: VALACYCLOVIR HCL 500 MG TABLET PO SCH (11:00)
[2024-04-16 14:07] LABS: *SPE A/G RATIO 1.1 (0.7-1.7); *SPE ALBUMIN 3.5 g/dL (2.9-4.4); *SPE ALPHA-1-GLOBULIN 0.2 g/dL (0.0-0.4); *SPE GLOBULIN, TOTAL 3.3 g/dL (2.2-3.9); *SPE M-SPIKE Not Observed g/dL (Not Observed); *SPE PROTEIN TOTAL 6.8 g/dL (6.0-8.5); *SPEGAMMA GLOBULIN 1.1 g/dL (0.4-1.8)
[2024-04-16 20:04] VITALS: BP 113/78; TEMP 99.1; O2SAT 94
[2024-04-17 00:05] VITALS: BP 117/85; TEMP 98.8; O2SAT 96
[2024-04-17 04:06] VITALS: BP 99/78; TEMP 98.2; O2SAT 97
[2024-04-17 08:00] VITALS: BP 115/81; TEMP 98.8; O2SAT 97
[2024-04-17 11:41] VITALS: BP 108/81; TEMP 98.6; O2SAT 95
[2024-04-17] MEDS ORDERED: LORA-259 PO (13:59)
[2024-04-17] MEDS ORDERED: CARV12.5 PO (13:59)
[2024-04-17] MEDS ORDERED: OXYC-133 PO (13:59)
[2024-04-17] MEDS ORDERED: LISI20TA30 PO (14:01)
== END 2024-04-17 17:00 | disposition short-term general hospital (02) | DRG 280 ==
LOC: ER 18:20 → TELE 20:21 → MED 04-16 11:37 → TELE 04-16 20:46
PROVIDERS: ADMIT Nurse Practitioner Family; ATTEND Nurse Practitioner Family
DX: I21.4 Non-ST elevation (NSTEMI) myocardial infarction (principal); N17.0 Acute kidney failure with tubular necrosis; E87.1 Hypo-osmolality and hyponatremia; E87.20 Acidosis, unspecified; K21.9 Gastro-esophageal reflux disease without esophagitis; I25.10 Atherosclerotic heart disease of native coronary artery without angina pectoris; H54.8 Legal blindness, as defined in USA; C14.0 Malignant neoplasm of pharynx, unspecified; Z98.890 Other specified postprocedural states; Z87.828 Personal history of other (healed) physical injury and trauma; N18.30 Chronic kidney disease, stage 3 unspecified; I12.9 Hypertensive chronic kidney disease with stage 1 through stage 4 chronic kidney disease, or unspecified chronic kidney disease; Z88.8 Allergy status to other drugs, medicaments and biological substances; Z79.899 Other long term (current) drug therapy; Z79.82 Long term (current) use of aspirin; Z95.5 Presence of coronary angioplasty implant and graft; M89.8X9 Other specified disorders of bone, unspecified site; I25.2 Old myocardial infarction; H40.9 Unspecified glaucoma; F41.9 Anxiety disorder, unspecified; E78.5 Hyperlipidemia, unspecified; B00.1 Herpesviral vesicular dermatitis; G89.29 Other chronic pain
CPT/HCPCS: 36415; 71045-TC; 80048-TC; 80053-TC; 80061-TC; 80076-TC; 82550-TC; 82553; 83735-TC; 83880; 83970; 84100-TC; 84155; 84165; 84443-TC; 84484-TC; 85025-TC; 85610-TC; 85730-TC; G0378; J1650

== ENCOUNTER 2024-04-23 00:30 | Emergency (ER) | payer MEDICARE, OTHER ==
[~2024-04-23] VITALS: Ht 172.7 cm; Wt 79.4 kg
[~2024-04-23 00:30] MED LIST changes: -CARV10CP7 PO; +CARV12.5 PO; -LISI10TA29 PO; +LISI20TA30 PO
[2024-04-23] MEDS: ASPIRIN 325 MG TABLET PO ONE (01:00)
[2024-04-23] MEDS ORDERED: ASPIRIN 325 MG TABLET ONE (01:19)
[2024-04-23 01:30] LABS: BASOPHILS % (AUTO) 0.5 % (0.0-2.0); EOSINOPHILS # (AUTO) 0.2 K/uL (0.0-0.7); EOSINOPHILS % (AUTO) 2.6 % (0.0-6.0); HEMATOCRIT 37 % (39-51); HEMOGLOBIN 12.6 g/dL (13.5-17.5); LYMPHOCYTES # (AUTO) 3.3 K/uL (0.8-4.8); LYMPHOCYTES % (AUTO) 34.7 % (20.0-44.0); MEAN CORPUSCULAR HEMOGLOBIN 33 PG (26.0-33.0); MEAN CORPUSCULAR HGB CONC 34 g/dl (31.0-36.0); MEAN CORPUSCULAR VOLUME 97 fL (80-96); MONOCYTES # (AUTO) 0.8 K/uL (0.1-1.30); MONOCYTES % (AUTO) 8.5 % (2.0-12.0); NEUTROPHILS # (AUTO) 5.1 K/uL (1.8-8.9); NEUTROPHILS % (AUTO) 53.7 % (43.0-81.0); PLATELET COUNT (AUTO) 187 K/uL (150-450); RED CELL DISTRIBUTION WIDTH 14.2 % (11.5-15.0); WHITE BLOOD COUNT (AUTO) 9.6 K/uL (4.3-11.0)
[2024-04-23 01:41] LABS: CALCIUM, SERUM 8.8 mg/dL (8.5-10.1); CARBON DIOXIDE 20 mmol/L (21-32); CHLORIDE 104 mmol/L (98-107); CREATININE 1.7 mg/dL (0.6-1.3); GLUCOSE 141 mg/dL (74-106); INR 0.93 (0.91-1.10); PARTIAL THROMBOPLASTIN TIME 26.7 SEC (24.3-34.3); POTASSIUM 4.1 mmol/L (3.5-5.1); PROTHROMBIN TIME 9.9 SECS (9.2-11.1); SODIUM SERUM 137 mmol/L (136-145); UREA NITROGEN, BLOOD 16 mg/dL (7-18)
[2024-04-23 01:55] LABS: ALANINE AMINOTRANSFERASE 31 U/L (12-78); ALKALINE PHOSPHATASE 68 U/L (46-116); ASPARTATE AMINOTRANSFERASE 11 U/L (15-37); BILIRUBIN,DIRECT 0.1 mg/dL (0.0-0.2); BILIRUBIN,TOTAL 0.2 mg/dL (0.2-1.0); NT-PRO BNP 558 pg/mL (0-125)
[2024-04-23] MEDS ORDERED: LIDOCAINE VISCOUS 2% UD 15 ML UDC ONE (02:33)
[2024-04-23] MEDS: LIDOCAINE VISCOUS 2% UD 15 ML UDC MM ONE (02:33)
[2024-04-23 05:36] VITALS: BP 97/68; TEMP 98.1; O2SAT 98
== END 2024-04-23 05:37 | disposition home or self-care (01) ==
LOC: ER 00:30
DX: R07.9 Chest pain, unspecified (principal); R94.31 Abnormal electrocardiogram [ECG] [EKG]; R06.02 Shortness of breath; M79.606 Pain in leg, unspecified; M54.9 Dorsalgia, unspecified; I10 Essential (primary) hypertension; H54.7 Unspecified visual loss; G89.29 Other chronic pain; Z88.8 Allergy status to other drugs, medicaments and biological substances; Z79.899 Other long term (current) drug therapy; Z85.89 Personal history of malignant neoplasm of other organs and systems
CPT/HCPCS: 36415; 71045-TC; 80048-TC; 80076-TC; 83880; 84484-TC; 85025-TC; 85730-TC

== ENCOUNTER 2024-07-01 12:40 | Emergency (ER) | payer MEDICARE, OTHER ==
[~2024-07-01] VITALS: Ht 177.8 cm; Wt 72.6 kg
[2024-07-01] MEDS ORDERED: ALBU8.5H8 INH (13:03)
[2024-07-01] MEDS ORDERED: PRED50TA PO (13:03)
[2024-07-01] MEDS ORDERED: ONDA4TAB5 PO (13:03)
[2024-07-01 13:15] VITALS: BP 109/72; TEMP 98; O2SAT 97
== END 2024-07-01 13:15 | disposition home or self-care (01) ==
LOC: ER 12:40
DX: U07.1 COVID-19 (principal); H54.7 Unspecified visual loss; I10 Essential (primary) hypertension; I25.2 Old myocardial infarction; Z85.21 Personal history of malignant neoplasm of larynx; Z87.39 Personal history of other diseases of the musculoskeletal system and connective tissue; Z88.8 Allergy status to other drugs, medicaments and biological substances

== ENCOUNTER 2024-07-03 04:12 | Emergency (ER) | payer MEDICARE, OTHER ==
[~2024-07-03] VITALS: Ht 177.8 cm; Wt 90.7 kg
[~2024-07-03 04:12] MED LIST changes: +ALBU8.5H8 INH; +ONDA4TAB5 PO; +PRED50TA PO
[2024-07-03] MEDS ORDERED: LORAZEPAM 1 MG TABLET ONE (04:52)
[2024-07-03] MEDS ORDERED: ONDANSETRON 4 MG TAB.RAPDIS ONE (04:53)
[2024-07-03] MEDS ORDERED: LORA-259 PO (04:53)
[2024-07-03] MEDS: ONDANSETRON 4 MG TAB.RAPDIS SL ONE (04:57)
[2024-07-03] MEDS: LORAZEPAM 1 MG TABLET PO ONE (05:00)
[2024-07-03 05:36] VITALS: BP 129/79; TEMP 89; O2SAT 100
== END 2024-07-03 05:36 | disposition home or self-care (01) ==
LOC: ER 04:27
DX: R07.89 Other chest pain (principal); U09.9 Post COVID-19 condition, unspecified; H54.7 Unspecified visual loss; I10 Essential (primary) hypertension; I25.2 Old myocardial infarction; Z85.818 Personal history of malignant neoplasm of other sites of lip, oral cavity, and pharynx; Z87.81 Personal history of (healed) traumatic fracture; Z88.8 Allergy status to other drugs, medicaments and biological substances
CPT/HCPCS: 99283; 71045; 93005; Q0162

== ENCOUNTER 2024-09-07 22:14 | Emergency (ER) | payer MEDICARE, OTHER ==
[~2024-09-07] VITALS: Ht 172.7 cm; Wt 77.1 kg
[2024-09-07 22:33] VITALS: BP 134/80; TEMP 98.3; O2SAT 96
== END 2024-09-07 23:10 | disposition home or self-care (01) ==
LOC: ER 22:17
DX: T83.490A Other mechanical complication of implanted penile prosthesis, initial encounter (principal); I10 Essential (primary) hypertension; N48.30 Priapism, unspecified; Z79.52 Long term (current) use of systemic steroids; Z79.624 Long term (current) use of inhibitors of nucleotide synthesis; Z79.899 Other long term (current) drug therapy; Z95.5 Presence of coronary angioplasty implant and graft; Z85.21 Personal history of malignant neoplasm of larynx; Z88.8 Allergy status to other drugs, medicaments and biological substances; Y84.8 Other medical procedures as the cause of abnormal reaction of the patient, or of later complication, without mention of misadventure at the time of the procedure; Y92.89 Other specified places as the place of occurrence of the external cause

== ENCOUNTER 2024-11-04 18:33 | Emergency (ER) | payer MEDICARE, OTHER ==
[~2024-11-04] VITALS: Ht 177.8 cm; Wt 81.6 kg
[2024-11-04 19:04] LABS: BASOPHILS # (AUTO) 0.1 K/uL (0.0-0.2); BASOPHILS % (AUTO) 0.7 % (0.0-2.0); EOSINOPHILS # (AUTO) 0.1 K/uL (0.0-0.7); EOSINOPHILS % (AUTO) 1.6 % (0.0-6.0); HEMATOCRIT 43 % (39-51); HEMOGLOBIN 14.6 g/dL (13.5-17.5); LYMPHOCYTES # (AUTO) 2.8 K/uL (0.8-4.8); LYMPHOCYTES % (AUTO) 36.6 % (20.0-44.0); MEAN CORPUSCULAR HEMOGLOBIN 32 PG (26.0-33.0); MEAN CORPUSCULAR HGB CONC 34 g/dl (31.0-36.0); MEAN CORPUSCULAR VOLUME 94 fL (80-96); MONOCYTES # (AUTO) 0.8 K/uL (0.1-1.30); MONOCYTES % (AUTO) 10.5 % (2.0-12.0); NEUTROPHILS # (AUTO) 3.9 K/uL (1.8-8.9); NEUTROPHILS % (AUTO) 50.6 % (43.0-81.0); PLATELET COUNT (AUTO) 196 K/uL (150-450); RED BLOOD CELL COUNT(AUTO) 4.55 MIL/uL (4.5-6.0); RED CELL DISTRIBUTION WIDTH 13.5 % (11.5-15.0); WHITE BLOOD COUNT (AUTO) 7.7 K/uL (4.3-11.0)
[2024-11-04 19:16] LABS: CARBON DIOXIDE 18 mmol/L (21-32); CHLORIDE 100 mmol/L (98-107); CREATININE 1.3 mg/dL (0.6-1.3); GLUCOSE 134 mg/dL (74-106); POTASSIUM 4.3 mmol/L (3.5-5.1); SODIUM SERUM 131 mmol/L (136-145); UREA NITROGEN, BLOOD 17 mg/dL (7-18)
[2024-11-04 19:29] LABS: ALANINE AMINOTRANSFERASE 30 U/L (12-78); ALKALINE PHOSPHATASE 77 U/L (46-116); ASPARTATE AMINOTRANSFERASE 20 U/L (15-37); BILIRUBIN,DIRECT 0.1 mg/dL (0.0-0.2); BILIRUBIN,TOTAL 0.1 mg/dL (0.2-1.0); NT-PRO BNP 57 pg/mL (0-125); TOTAL PROTEIN, SERUM 8.1 g/dL (6.4-8.2)
[2024-11-04] MEDS ORDERED: MORPHINE SULFATE INJ 2 MG/ML DISP.SYRIN ONE (19:54)
[2024-11-04] MEDS: MORPHINE SULFATE INJ 2 MG/ML DISP.SYRIN IV ONE (19:57)
[2024-11-04 20:48] VITALS: BP 122/76; TEMP 98.3; O2SAT 98
== END 2024-11-04 20:48 | disposition left against medical advice (07) ==
LOC: ER 18:36
DX: R07.89 Other chest pain (principal); E78.5 Hyperlipidemia, unspecified; E87.1 Hypo-osmolality and hyponatremia; F41.9 Anxiety disorder, unspecified; I10 Essential (primary) hypertension; I25.10 Atherosclerotic heart disease of native coronary artery without angina pectoris; K21.9 Gastro-esophageal reflux disease without esophagitis; Z79.52 Long term (current) use of systemic steroids; Z79.624 Long term (current) use of inhibitors of nucleotide synthesis; Z79.899 Other long term (current) drug therapy; Z95.5 Presence of coronary angioplasty implant and graft; Z86.69 Personal history of other diseases of the nervous system and sense organs; Z86.79 Personal history of other diseases of the circulatory system; Z87.39 Personal history of other diseases of the musculoskeletal system and connective tissue
CPT/HCPCS: 99285; 96374; 71045; 93005; 85025; 80048; 80076; 36415; 84484 ×2; 83880; J2270

== ENCOUNTER 2024-12-12 12:35 | Inpatient (IN) | payer MEDICARE, OTHER ==
[~2024-12-12] VITALS: Ht 177.8 cm; Wt 81.6 kg
[~2024-12-12 12:35] MED LIST changes: +OXYC-128 PO
[2024-12-12] MEDS ORDERED: MORPHINE SULFATE INJ 4 MG/ML DISP.SYRIN ONE ×2 (12:58→16:07)
[2024-12-12] MEDS ORDERED: ONDANSETRON HCL/PF 4 MG/2 ML VIAL ONE (12:58)
[2024-12-12] MEDS: MORPHINE SULFATE INJ 2 MG/ML DISP.SYRIN IV ONE ×2 (13:00→16:14)
[2024-12-12] MEDS: ONDANSETRON HCL/PF 4 MG/2 ML VIAL IVP ONE (13:01)
[2024-12-12 13:16] LABS: BASOPHILS % (AUTO) 0.5 % (0.0-2.0); EOSINOPHILS % (AUTO) 0.3 % (0.0-6.0); HEMATOCRIT 44 % (39-51); HEMOGLOBIN 15.2 g/dL (13.5-17.5); LYMPHOCYTES # (AUTO) 1.7 K/uL (0.8-4.8); MEAN CORPUSCULAR HEMOGLOBIN 32 PG (26.0-33.0); MEAN CORPUSCULAR HGB CONC 34 g/dl (31.0-36.0); MEAN CORPUSCULAR VOLUME 94 fL (80-96); MONOCYTES # (AUTO) 0.6 K/uL (0.1-1.30); MONOCYTES % (AUTO) 7.4 % (2.0-12.0); NEUTROPHILS # (AUTO) 5.2 K/uL (1.8-8.9); NEUTROPHILS % (AUTO) 68.8 % (43.0-81.0); PLATELET COUNT (AUTO) 223 K/uL (150-450); RED BLOOD CELL COUNT(AUTO) 4.71 MIL/uL (4.5-6.0); WHITE BLOOD COUNT (AUTO) 7.6 K/uL (4.3-11.0)
[2024-12-12 13:37] LABS: ALANINE AMINOTRANSFERASE 22 U/L (12-78); ALBUMIN 4.4 g/dL (3.4-5.0); ALKALINE PHOSPHATASE 70 U/L (46-116); ASPARTATE AMINOTRANSFERASE 16 U/L (15-37); BILIRUBIN,DIRECT 0.1 mg/dL (0.0-0.2); BILIRUBIN,TOTAL 0.4 mg/dL (0.2-1.0); CALCIUM, SERUM 9.4 mg/dL (8.5-10.1); CARBON DIOXIDE 21 mmol/L (21-32); CHLORIDE 100 mmol/L (98-107); CREATININE 1.4 mg/dL (0.6-1.3); GLUCOSE 125 mg/dL (74-106); POTASSIUM 4.3 mmol/L (3.5-5.1); SODIUM SERUM 131 mmol/L (136-145); TOTAL PROTEIN, SERUM 8.4 g/dL (6.4-8.2); UREA NITROGEN, BLOOD 22 mg/dL (7-18)
[2024-12-12 13:40] LABS: INR 0.97 (0.91-1.10); PARTIAL THROMBOPLASTIN TIME 28.3 SEC (24.3-34.3); PROTHROMBIN TIME 10.3 SECS (9.2-11.1)
[2024-12-12] MEDS ORDERED: LORAZEPAM 1 MG TABLET ONE (15:05)
[2024-12-12] MEDS: LORAZEPAM 1 MG TABLET PO ONE (15:09)
[2024-12-12 16:00] VITALS: BP 107/76; TEMP 97.3; O2SAT 96
[2024-12-12] MEDS ORDERED: MAG HYDROX/AL HYDROX/SIMETH 30 ML UDC PO PRN (16:30)
[2024-12-12] MEDS ORDERED: FAMOTIDINE (20 MG) 20 MG TABLET PO PRN (16:30)
[2024-12-12] MEDS ORDERED: Z GUARD REMEDY 4 OZ OINT TP PRN (16:30)
[2024-12-12] MEDS ORDERED: ACETAMINOPHEN 325 MG TABLET PO PRN (16:30)
[2024-12-12] MEDS ORDERED: MAGNESIUM HYDROXIDE 30 ML UDC PO PRN (16:30)
[2024-12-12] MEDS: CEFTRIAXONE 1 G in IV D5W 50 ML IV SCH (17:17)
[2024-12-12] MEDS: LIDOCAINE 5% (PATCH) 1 EA PATCH TP SCH (17:18)
[2024-12-12] MEDS: BACLOFEN (10 MG) 10 MG TABLET PO SCH (17:18)
[2024-12-12] MEDS: GABAPENTIN 100 MG CAPSULE PO SCH (17:19)
[2024-12-12] MEDS: CARVEDILOL 12.5 MG TABLET PO SCH (17:20)
[2024-12-12] MEDS: AZITHROMYCIN 500 MG in IV D5W 250 ML IV SCH (18:07)
[2024-12-12] MEDS: IV NS 0.9% 1,000 ML IV PRN (19:06)
[2024-12-12] MEDS: ZOLPIDEM TARTRATE 5 MG TABLET PO PRN (20:30)
[2024-12-12] MEDS: ONDANSETRON HCL/PF 4 MG/2 ML VIAL IVP PRN (20:30)
[2024-12-12] MEDS: HYDROMORPHONE 1 MG/1 ML DISP.SYRIN IV PRN (20:31)
[2024-12-12 20:45] VITALS: BP 115/76; TEMP 98.4; O2SAT 96
[2024-12-13] MEDS: oxyCODONE/APAP (5/325 MG) 1 UDTAB TABLET PO PRN (00:10)
[2024-12-13 06:58] LABS: CALCIUM, SERUM 9.7 mg/dL (8.5-10.1); CREATININE 1.3 mg/dL (0.6-1.3); MAGNESIUM 2.4 mg/dL (1.8-2.4); PHOSPHORUS 3.4 mg/dL (2.5-4.9); POTASSIUM 4.8 mmol/L (3.5-5.1)
[2024-12-13 08:00] VITALS: BP 118/82; TEMP 98.6; O2SAT 98
[2024-12-13 08:27] LABS: BASOPHILS % (AUTO) 0.3 % (0.0-2.0); EOSINOPHILS # (AUTO) 0.2 K/uL (0.0-0.7); EOSINOPHILS % (AUTO) 2.8 % (0.0-6.0); HEMATOCRIT 48 % (39-51); HEMOGLOBIN 15.9 g/dL (13.5-17.5); LYMPHOCYTES # (AUTO) 1.2 K/uL (0.8-4.8); LYMPHOCYTES % (AUTO) 18.5 % (20.0-44.0); MEAN CORPUSCULAR HEMOGLOBIN 31 PG (26.0-33.0); MEAN CORPUSCULAR HGB CONC 33 g/dl (31.0-36.0); MEAN CORPUSCULAR VOLUME 95 fL (80-96); MONOCYTES # (AUTO) 0.7 K/uL (0.1-1.30); MONOCYTES % (AUTO) 10.5 % (2.0-12.0); NEUTROPHILS # (AUTO) 4.4 K/uL (1.8-8.9); NEUTROPHILS % (AUTO) 67.9 % (43.0-81.0); PLATELET COUNT (AUTO) 236 K/uL (150-450); RED BLOOD CELL COUNT(AUTO) 5.09 MIL/uL (4.5-6.0); RED CELL DISTRIBUTION WIDTH 15.1 % (11.5-15.0); WHITE BLOOD COUNT (AUTO) 6.5 K/uL (4.3-11.0)
[2024-12-13] MEDS: SODIUM CHLORIDE 1000 MG TABLET PO SCH (08:38)
[2024-12-13] MEDS: ATORVASTATIN 40 MG TABLET PO SCH (08:39)
[2024-12-13] MEDS: LISINOPRIL (20MG) 20 MG TABLET PO SCH (08:39)
[2024-12-13 16:00] VITALS: BP 108/72; TEMP 98.4; O2SAT 96
[2024-12-13] MEDS: LORAZEPAM 0.5 MG TABLET PO ONE (18:14)
[2024-12-13 20:00] VITALS: BP 96/63; TEMP 98.1; O2SAT 96
[2024-12-13] MEDS: LATANOPROST EYE DROP 0.005% 2.5 ML BOTTLE OP SCH (22:02)
[2024-12-14 08:00] VITALS: BP 112/81; TEMP 99; O2SAT 96
[2024-12-14] MEDS: TRIUMEQ PO SCH (08:22)
[2024-12-14 08:23] VITALS: BP 112/81
[2024-12-14 10:01] LABS: BASOPHILS % (AUTO) 0.5 % (0.0-2.0); EOSINOPHILS # (AUTO) 0.2 K/uL (0.0-0.7); EOSINOPHILS % (AUTO) 3.6 % (0.0-6.0); HEMATOCRIT 42 % (39-51); HEMOGLOBIN 14.3 g/dL (13.5-17.5); LYMPHOCYTES # (AUTO) 1.8 K/uL (0.8-4.8); LYMPHOCYTES % (AUTO) 28.1 % (20.0-44.0); MEAN CORPUSCULAR HEMOGLOBIN 32 PG (26.0-33.0); MEAN CORPUSCULAR HGB CONC 34 g/dl (31.0-36.0); MEAN CORPUSCULAR VOLUME 95 fL (80-96); MONOCYTES # (AUTO) 0.6 K/uL (0.1-1.30); MONOCYTES % (AUTO) 10.3 % (2.0-12.0); NEUTROPHILS # (AUTO) 3.6 K/uL (1.8-8.9); NEUTROPHILS % (AUTO) 57.5 % (43.0-81.0); PLATELET COUNT (AUTO) 206 K/uL (150-450); RED BLOOD CELL COUNT(AUTO) 4.46 MIL/uL (4.5-6.0); RED CELL DISTRIBUTION WIDTH 15.1 % (11.5-15.0); WHITE BLOOD COUNT (AUTO) 6.3 K/uL (4.3-11.0)
[2024-12-14 10:15] LABS: CALCIUM, SERUM 8.8 mg/dL (8.5-10.1); CREATININE 1.6 mg/dL (0.6-1.3); MAGNESIUM 2.3 mg/dL (1.8-2.4); PHOSPHORUS 2.5 mg/dL (2.5-4.9)
[2024-12-14 12:05] LABS: APPEARANCE,URINE CLEAR (CLEAR); BILIRUBIN,URINE NEGATIVE (NEGATIVE); BLOOD, URINE NEGATIVE Ery/uL (NEGATIVE); COLOR,URINE YELLOW (YELLOW); KETONES,URINE NEGATIVE (NEGATIVE); LEUKOCYTE ESTERASE ,URINE NEGATIVE (NEGATIVE); NITRITE, URINE NEGATIVE (NEGATIVE); PROTEIN,URINE 1+ mg/dl (NEGATIVE); UGLUCOSE NEGATIVE (NEGATIVE); UROBILINOGEN,URINE 0.2 EU/dL (0.2)
[2024-12-14 12:09] LABS: CREATININE, URINE 157.6 MG/DL (30.0-125.0); URINE TOTAL PROTEIN 60.4 mg/dL (0-11.9)
[2024-12-14 12:46] LABS: ADD URINE CULTURE NO; BACTERIA,URINE Rare /HPF (None Seen); MUCUS,URINE Few /LPF (None Seen); RBC,URINE 0-2 /HPF (0-2); SQUAMOUS EPITHELIAL CELL,UR None Seen /HPF (None Seen)
[2024-12-14 13:15] LABS: EOSINOPHIL,URINE None Seen
== END 2024-12-14 13:35 | disposition home health service (06) | DRG 190 ==
LOC: ER 12:45 → MED 16:30
PROVIDERS: ADMIT Nurse Practitioner Acute Care
DX: J47.9 Bronchiectasis, uncomplicated (principal); N17.0 Acute kidney failure with tubular necrosis; E87.1 Hypo-osmolality and hyponatremia; Z90.49 Acquired absence of other specified parts of digestive tract; Z95.5 Presence of coronary angioplasty implant and graft; I25.10 Atherosclerotic heart disease of native coronary artery without angina pectoris; M89.8X9 Other specified disorders of bone, unspecified site; E83.9 Disorder of mineral metabolism, unspecified; N18.30 Chronic kidney disease, stage 3 unspecified; E78.5 Hyperlipidemia, unspecified; G89.29 Other chronic pain; Z86.73 Personal history of transient ischemic attack (TIA), and cerebral infarction without residual deficits; M54.9 Dorsalgia, unspecified; R26.9 Unspecified abnormalities of gait and mobility; H54.3 Unqualified visual loss, both eyes; R29.6 Repeated falls; Z85.818 Personal history of malignant neoplasm of other sites of lip, oral cavity, and pharynx; J98.4 Other disorders of lung; I12.9 Hypertensive chronic kidney disease with stage 1 through stage 4 chronic kidney disease, or unspecified chronic kidney disease; I25.2 Old myocardial infarction; W18.2XXA Fall in (into) shower or empty bathtub, initial encounter; Y93.E1 Activity, personal bathing and showering; Y92.009 Unspecified place in unspecified non-institutional (private) residence as the place of occurrence of the external cause
CPT/HCPCS: 36415; 71045-TC; 71250-TC; 72110-TC; 80048-TC; 80076-TC; 81001; 82570-TC; 83735-TC; 84100-TC; 84300-TC; 84484-TC; 85025-TC; 85730-TC; 86480; 87081-TC; 97116-TC; 97530-TC; A4223; G0378; J0456; J0696; J1171; J2270; J2405; J7030; J7050; J7060

== ENCOUNTER 2024-12-16 16:37 | Emergency (ER) | payer MEDICARE, OTHER ==
[~2024-12-16] VITALS: Ht 170.2 cm; Wt 77.1 kg
[2024-12-16 16:50] VITALS: BP 123/80; TEMP 98
[2024-12-16] MEDS ORDERED: OXYC-128 PO (18:13)
[2024-12-16 18:25] VITALS: O2SAT 97
== END 2024-12-16 18:26 | disposition home or self-care (01) ==
LOC: ER 16:37
DX: G89.29 Other chronic pain (principal); I10 Essential (primary) hypertension; Z79.52 Long term (current) use of systemic steroids; Z79.624 Long term (current) use of inhibitors of nucleotide synthesis; Z79.899 Other long term (current) drug therapy; Z95.5 Presence of coronary angioplasty implant and graft; Z76.0 Encounter for issue of repeat prescription

== ENCOUNTER 2025-01-08 08:17 | Emergency (ER) | payer MEDICARE, OTHER ==
[~2025-01-08] VITALS: Ht 177.8 cm; Wt 74.8 kg
[2025-01-08] MEDS ORDERED: ACETAMINOPHEN 325 MG TABLET ONE (08:49)
[2025-01-08] MEDS: ACETAMINOPHEN 325 MG TABLET PO ONE (09:11)
[2025-01-08 10:27] VITALS: BP 112/82; TEMP 98.3; O2SAT 99
== END 2025-01-08 10:29 | disposition home or self-care (01) ==
LOC: ER 08:39
DX: M54.50 Low back pain, unspecified (principal); G89.29 Other chronic pain; R05.3 Chronic cough; I10 Essential (primary) hypertension; H54.7 Unspecified visual loss; Z79.52 Long term (current) use of systemic steroids; Z79.624 Long term (current) use of inhibitors of nucleotide synthesis; Z79.899 Other long term (current) drug therapy; Z95.5 Presence of coronary angioplasty implant and graft; W01.0XXA Fall on same level from slipping, tripping and stumbling without subsequent striking against object, initial encounter; Y93.89 Activity, other specified; Y92.89 Other specified places as the place of occurrence of the external cause; Y99.8 Other external cause status
CPT/HCPCS: 71045-TC; 72131-TC

== ENCOUNTER 2025-01-14 20:53 | Emergency (ER) | payer MEDICARE, OTHER ==
[~2025-01-14] VITALS: Ht 177.8 cm; Wt 74.8 kg
[2025-01-14 21:17] VITALS: BP 133/92; TEMP 98.4; O2SAT 97
== END 2025-01-14 22:32 | disposition left against medical advice (07) ==
LOC: ER 20:57
DX: J02.9 Acute pharyngitis, unspecified (principal); M79.10 Myalgia, unspecified site; Z53.21 Procedure and treatment not carried out due to patient leaving prior to being seen by health care provider

== ENCOUNTER → 2025-04-08 | Emergency (ER) | payer MEDICARE, OTHER ==
[~2025-04-08] VITALS: Ht 177.8 cm; Wt 88.5 kg
[~2025-04-08] MED LIST changes: +MORPHINE SULFATE INJ 2 MG/ML DISP.SYRIN ONE
[2025-04-08 10:52] VITALS: TEMP 98.2
[2025-04-08] MEDS: MORPHINE SULFATE INJ 2 MG/ML DISP.SYRIN IM ONE (11:09)
[2025-04-08 12:21] VITALS: BP 134/76; O2SAT 97
== END | disposition home or self-care (01) ==
LOC: ER 10:49
DX: M54.9 Dorsalgia, unspecified (principal); I10 Essential (primary) hypertension; G89.29 Other chronic pain; Z79.52 Long term (current) use of systemic steroids; Z79.624 Long term (current) use of inhibitors of nucleotide synthesis; Z79.899 Other long term (current) drug therapy; Z95.5 Presence of coronary angioplasty implant and graft
CPT/HCPCS: 99283; 96372; J2270

== ENCOUNTER 2025-09-10 15:52 | Inpatient (IN) | payer MEDICARE, OTHER ==
[~2025-09-10] VITALS: Ht 172.7 cm; Wt 70.3 kg
[~2025-09-10 15:52] MED LIST changes: -MORPHINE SULFATE INJ 2 MG/ML DISP.SYRIN ONE
--- NOTE | 2025-09-10 15:56 | NUR ---
MAURICE FROM [facility] FOR MULTIPLE EPISODES OF COFFEE GROUND EMESIS SINCE NOON. TO ER BED 2, HOOKED TO MONITOR. SNF GOWN NOTED W DRIED COFFEE GROUND EMESIS. CHANGED AND CLEANED. NOTED W G-TUBE AND TRACH ON 5LMP O2. AWAITING MD MENDEZ, KEPT WARM AND SAFE
--- NOTE | 2025-09-10 16:12 | NUR ---
RT STAT: trach pt received on cool aerosol w/ an spo2 of 96%.
--- NOTE | 2025-09-10 16:19 | NUR ---
DR DILLARD AT BEDSIDE
--- NOTE | 2025-09-10 16:20 | NUR ---
NURSE TRIED TO PLACE AND IV PERIPHERAL LINE, FAILED. CALLED HOUSE SUP FOR ULTRASOUND GUIDED IV INSERTION.
[2025-09-10 16:37] LABS: PLATELET COUNT (AUTO) 448 K/uL (150-450); RED BLOOD CELL COUNT(AUTO) 4.80 MIL/uL (4.5-6.0); RED CELL DISTRIBUTION WIDTH 17.1 % (11.5-15.0); WHITE BLOOD COUNT (AUTO) 15.5 K/uL (4.3-11.0)
[2025-09-10 16:45] LABS: INR 1.57 (0.91-1.10)
[2025-09-10 16:46] LABS: CALCIUM, SERUM 11.2 mg/dL (8.5-10.1); CREATININE 0.9 mg/dL (0.6-1.3); SODIUM SERUM 132.0 mmol/L (136-145); UREA NITROGEN, BLOOD 21.0 mg/dL (7-18)
[2025-09-10 16:51] LABS: ASPARTATE AMINOTRANSFERASE 38.0 U/L (15-37); TOTAL PROTEIN, SERUM 9.0 g/dL (6.4-8.2)
--- NOTE | 2025-09-10 16:59 | NUR ---
MRSA SWAB COLLECTED AND SENT TO LAB
--- NOTE | 2025-09-10 17:30 | NUR ---
ARMATURE TESTER AT BEDSIDE.
--- NOTE | 2025-09-10 17:37 | NUR ---
BED REQUESTED FROM HOUSE SUP
[2025-09-10] MEDS ORDERED: IV NS 0.9% 250 ML IV ONE (17:43)
[2025-09-10] MEDS ORDERED: IOHEXOL-350 100 ML VIAL IV ONE (17:43)
[2025-09-10] MEDS ORDERED: IPRA4AER IH ×2 (17:46)
[2025-09-10] MEDS ORDERED: MAGN400O6 GT (17:46)
[2025-09-10] MEDS ORDERED: ZINC1CAP2 GT (17:46)
[2025-09-10] MEDS ORDERED: PANT40SU2 GT (17:46)
[2025-09-10] MEDS ORDERED: NA P133E RC (17:46)
[2025-09-10] MEDS ORDERED: ASCO500T21 GT (17:46)
[2025-09-10] MEDS ORDERED: COLL30OI TP (17:46)
[2025-09-10] MEDS ORDERED: ACET-73 PO (17:46)
[2025-09-10] MEDS ORDERED: METO5TAB2 GT (17:46)
[2025-09-10] MEDS ORDERED: BISA10SU11 RC (17:46)
[2025-09-10] MEDS ORDERED: CHLO473M5 PO (17:46)
[2025-09-10] MEDS ORDERED: ENOX40DI9 SQ (17:46)
[2025-09-10] MEDS ORDERED: DOCU100T2 GT (17:46)
[2025-09-10] MEDS ORDERED: MULT-213 GT (17:46)
[2025-09-10] MEDS ORDERED: ABAC1TAB15 GT (17:46)
[2025-09-10] MEDS ORDERED: AMIN30LI66 GT (17:46)
[2025-09-10] MEDS ORDERED: ACET325T53 GT (17:46)
[2025-09-10] MEDS ORDERED: ATRO2DRO4 EACHEYE (17:46)
[2025-09-10] MEDS ORDERED: LEVE100S GT (17:46)
[2025-09-10] MEDS ORDERED: CARV3.122 GT (17:46)
[2025-09-10] MEDS: PANTOPRAZOLE 80 MG in IV NS 0.9% 100 ML IV ONE (18:05)
[2025-09-10] MEDS: IV NS 0.9% 1,000 ML BAG IV ONE (18:22)
[2025-09-10] MEDS: PANTOPRAZOLE 80 MG in IV NS 0.9% 500 ML IV PRN (18:30)
[2025-09-10 19:42] VITALS: O2SAT 99
--- NOTE | 2025-09-10 19:50 | NUR ---
Yassine adame in ED - 09/10/25 at 2017 by JAYDA pt taken to [facility]
--- NOTE | 2025-09-10 20:35 | NUR ---
CONNECTED DR DILLARD WITH PSYCH SALES SPECIALIST GI DR SAHU
[2025-09-10] MEDS ORDERED: Z GUARD REMEDY 4 OZ OINT TP PRN (21:00)
[2025-09-10] MEDS ORDERED: ONDANSETRON HCL/PF 4 MG/2 ML VIAL IVP PRN (21:00)
[2025-09-10] MEDS ORDERED: DOSING PER PHARMACY-VANCOMYCIN IV XX PRN (21:00)
--- NOTE | 2025-09-10 21:01 | NUR ---
report given to omar leung for lizzeth
[2025-09-10 21:13] LABS: LACTIC ACID 2.0 mmol/L (0.4-2.0)
--- NOTE | 2025-09-10 21:33 | NUR ---
GETTING TRANSFERRED TO 110 UNDER ACLS
[2025-09-10 21:38] LABS: PLATELET COUNT (AUTO) 372 K/uL (150-450); RED BLOOD CELL COUNT(AUTO) 4.42 MIL/uL (4.5-6.0); RED CELL DISTRIBUTION WIDTH 17.3 % (11.5-15.0); WHITE BLOOD COUNT (AUTO) 14.2 K/uL (4.3-11.0)
--- NOTE | 2025-09-10 22:00 | NUR ---
line crew supervisor Notes Received pt from ED via nicole. Report given by Luca OGLESBY. Pt a/ox1, legally blind in both eyes, accompanied by at bedside. Pt came w/cc of coffee ground emesis, dx GIB. Pt w/trach at midline, on tpiece Fio2 35%. Placed on vehicle monitor technician, current reading ST 117 bpm. Skin assessment done, noted w/bilateral heel redness, sacral wound, both ears w/lesions, photos taken and placed in chart. GT clamped, checked for patency, auscultated, flushed. VS checked and recorded, HR 115-130s bpm at baseline. Safety measures implemented, bed in lowest, locked position, rails upx3, hob elevated, bed alarm on. Plan of care ongoing.
[2025-09-10] MEDS: CEFEPIME 2 GM in IV D5W 100 ML IV SCH (22:44)
[2025-09-10] MEDS: IV D5/0.45 NACL 1,000 ML IV PRN (23:02)
[2025-09-10] MEDS: IV NS 0.9% 1,000 ML IV ONE (23:04)
[2025-09-10 23:30] VITALS: O2SAT 99
--- NOTE | 2025-09-10 23:30 | NUR ---
RT NOTE: REC'D PT STABLE ON T-PIECE AT 35%. PLACED PT ON COOL AEROSOL 8L-35% LEONA. WELL. SUCTION AND LAVAGE DONE. NO SIGNS OF RESPIRATORY DISTRESS. SPARE TRACH AND AMBUBAG AT BEDSIDE.
[2025-09-10] MEDS: VANCOMYCIN HCL 1.25 GM in IV D5W 250 ML IV ONE (23:55)
[2025-09-11] VITALS (12 sets, daily range): BP systolic 90–140; BP diastolic 62–96; TEMP 97.5–99.6; O2SAT 94–100
--- NOTE | 2025-09-11 00:10 | NUR ---
RN Note RT at bedside, suctioned pt, w/thick, yellow to greenish secretions, moderate amt. Placed on cool aerosol 8L O2.
[2025-09-11] MEDS: LEVETIRACETAM (500MG) 1,000 MG in IV NS 0.9% 90 ML IV SCH (00:30)
[2025-09-11] MEDS ORDERED: IPRATROPIUM NEB FS 0.5 MG/2.5 ML AMPUL.NEB NEB PRN ×2 (00:30→13:00)
[2025-09-11] MEDS ORDERED: ALBUTEROL FS 2.5 MG/3 ML VIAL.NEB NEB PRN ×2 (00:30→13:00)
[2025-09-11 00:45] LABS: LACTIC ACID REFLEX 1.4 mmol/L (0.4-1.9)
[2025-09-11] MEDS: ACETAMINOPHEN 650 MG/SUPP.RECT RC PRN (01:37)
[2025-09-11] MEDS ORDERED: LEVETIRACETAM (500MG) 500 MG/5 ML VIAL IV ONE (02:17)
--- NOTE | 2025-09-11 03:30 | NUR ---
RN Note Pt current reading ST 130-140s. LEARN TO SWIM INSTRUCTOR Sreedhar informed, awaiting response, CN Cierra aware.
--- NOTE | 2025-09-11 06:38 | NUR ---
RN Closing Note Pt resting in bed, w/tpiece @35% on cool aerosol, frank well. ST on the monitor, HR 139 bpm. IV access NAN g#18-intact, patent, infusing D5 1/2 NS @75ml/hr. GT clamped, patent. Pure wick in place w/ 300cc output, Suction set up at bedside, noted w/thick, yellow to green secretions. Safety measures maintained , bed in lowest, locked position, rails upx2, hob elevated 30-45 degrees, call light and personal items within reach. Plan of care endorsed to oncoming nurse for lizzeth.
[2025-09-11 07:04] LABS: PLATELET COUNT (AUTO) 352 K/uL (150-450); RED BLOOD CELL COUNT(AUTO) 4.63 MIL/uL (4.5-6.0); RED CELL DISTRIBUTION WIDTH 17.4 % (11.5-15.0); WHITE BLOOD COUNT (AUTO) 11.0 K/uL (4.3-11.0)
[2025-09-11 07:19] LABS: CALCIUM, SERUM 10.6 mg/dL (8.5-10.1); CREATININE 1.3 mg/dL (0.6-1.3); PHOSPHORUS 2.6 mg/dL (2.5-4.9); SODIUM SERUM 140.0 mmol/L (136-145); UREA NITROGEN, BLOOD 21.0 mg/dL (7-18)
--- NOTE | 2025-09-11 07:41 | NUR ---
RN Opening Note Received Pt resting in bed, w/tpiece @35% on cool aerosol, frank well. ST on the monitor, HR 139 bpm. IV access ANN g#18-intact, patent, infusing D5 1/2 NS @75ml/hr. GT clamped, patent. Pure wick in place. Suction set up at bedside, noted w/thick, yellow to green secretions. Fall and Safety measures maintained , bed locked in lowest position, bed alarm on, side rails upx2, hob elevated 30-45 degrees, call light and personal items within reach. Plan of care ongoing.
[2025-09-11] MEDS: PANTOPRAZOLE 40 MG VIAL IV SCH (08:37)
--- NOTE | 2025-09-11 09:55 | NUR ---
WOUND CARE CONSULT: PT PRESENTS WITH CRUSTED WOUND TO RT EAR AND SACRAL STAGE 3 PRESSURE INJURY, PRESENT ON ADMISSION. DR GOLDBERG CALLED FOR SURGICAL CONSULT. DISCUSSED SKIN PROTECTION WITH NURSING STAFF. IN AGREEMENT WITH PLAN OF CARE.
[2025-09-11] MEDS: VANCOMYCIN HCL 1.25 GM in IV D5W 250 ML IV SCH (10:41)
[2025-09-11] MEDS: POTASSIUM CL. PREMIX PERIPHER. 50 ML IV SCH (10:41)
[2025-09-11] MEDS: THERAHONEY GEL 1.5 OZ TUBE TP SCH (10:53)
[2025-09-11] MEDS ORDERED: HOME MED MISCELLANEOUS XX SCH (13:00)
[2025-09-11] MEDS ORDERED: NA PHOS,M-B/NA PHOS,DI-BA 1 EA ENEMA RC PRN (13:00)
[2025-09-11] MEDS ORDERED: MAGNESIUM HYDROXIDE 30 ML UDC GT PRN (13:00)
[2025-09-11] MEDS ORDERED: ACETAMINOPHEN ES 500 MG TABLET GT PRN (13:00)
[2025-09-11] MEDS ORDERED: BISACODYL SUPP (10 MG) 10 MG/SUPP.RECT SUPP.RECT RC PRN (13:00)
--- NOTE | 2025-09-11 15:32 | NUR ---
RT NOTE: RECEIVED PT ON C/A 35% 8LPM. SAT 95-100%. BILATERAL B/S AUSCULTATED, NO SIGN OF RDS/SOB. SUCTION PT Q2/PRN (LUNGS/MOUTH). TRACH-CARE WAS PROVIDED AND TRACH IS SECURED/PATENT/INLINE. WILL CONTINUE TO MONITOR PT T/O SHIFT.
--- NOTE | 2025-09-11 15:46 | NUR ---
Rd received consult for TF. Please see nutrition assessment for recommendations when ready to initiate TF.
--- NOTE | 2025-09-11 16:12 | NUR ---
RN NOTE PATIENT HAD CT SCAN OF ABDOMEN PELVIS AT 1600. RETURNED TO THE PATIENT'S ROOM AT 1612. PATIENT IS STABLE.
[2025-09-11] MEDS: CHLORHEXIDINE GLUCONATE 15 ML UDC MM SCH (16:48)
[2025-09-11] MEDS: ATROPINE SULFATE OPHTH SOLN 15 ML BOTTLE EACHEYE SCH (16:49)
[2025-09-11] MEDS: CARVEDILOL 3.125 MG TABLET GT SCH (16:49)
[2025-09-11] MEDS ORDERED: PANTOPRAZOLE 40 MG/PACK PACK GT SCH (17:00)
[2025-09-11] MEDS ORDERED: LEVETIRACETAM SOL (5 ML) 100 MG/ML UDC GT SCH (17:00)
--- NOTE | 2025-09-11 19:07 | NUR ---
RN Closing Note Pt sleeping in bed, w/tpiece @35% on cool aerosol, frank well in semi fowlers position. ST on the monitor, HR 135 bpm. IV access ANN g#18-intact, patent, infusing D5 1/2 NS @75ml/hr. GT clamped, patent. Pure wick in place output is 400 ml. 1 bowel movement. Suction set up at bedside, noted w/thick, yellow to green secretions. All due meds given. All needs attended and anticipated. Patient turned and repositioned. Patient clean and dry. Patient completed CT of abdomen and pelvis around 1400. Fall and Safety measures maintained , bed locked in lowest position, bed alarm on, side rails upx2, hob elevated 30-45 degrees, call light and personal items within reach. Endorse to fast food shift lead nurse for continuity of care.
--- NOTE | 2025-09-11 19:26 | NUR ---
SKIP TRACER OPENING NOTE RECEIVED PATIENT IN BED ON SEMI-FOWLERS POSITION, WITH AT BEDSIDE. PATIENT OBTUNDED WITH EYES CLOSED, NO FACIAL GRIMACING OBSERVED. WITH TRACH IN PLACE CONNECTED TO COOL AEROSOL VIA T-PIECE, TOLERATING WELL AT 35% FI02 AT 8LPM O2, WITH SPO2 98%, ATTENDED BY RT ASSIGNED. ON EXTERNAL PRODUCT DESIGNER CURRENTLY READING ST, HR 136 BPM. WITH IV ACCESS ON ANN #18G, INFUSING D5 1/2 NS AT 75CC/HR, TOLERATING WELL. GT IN PLACE, CLAMPED ORDERED NPO AT THIS TIME. ON PUREWICK CONNECTED TO CONTINUOUS WALL SUCTION WITH BRANDON COLORED URINE. KEPT HOB ELEVATED, PER PATIENT'S COMFORT. SAFETY MEASURES IMPLEMENTED PER UNIT PROTOCOL. CONTINUED WITH ONGOING PLAN OF CARE.
[2025-09-11] MEDS: ACETAMINOPHEN 325 MG TABLET PO PRN (20:55)
[2025-09-11] MEDS: VANCOMYCIN 750 MG in IV D5W 250 ML IV SCH (22:20)
[2025-09-12] VITALS (12 sets, daily range): BP systolic 94–118; BP diastolic 63–81; TEMP 97.8–98.9; O2SAT 95–100
--- NOTE | 2025-09-12 07:25 | NUR ---
POSTIE CLOSING NOTE PATIENT REMAINS IN BED ON SEMI-FOWLERS POSITION. PATIENT OBTUNDED WITH EYES CLOSED, NO FACIAL GRIMACING OBSERVED. WITH TRACH IN PLACE CONNECTED TO COOL AEROSOL VIA T-PIECE, TOLERATING WELL AT 35% FI02 AT 8LPM O2, WITH SPO2 98%, ATTENDED BY RT ASSIGNED. ON EXTERNAL VETERANS SERVICES SPECIALIST CURRENTLY READING ST, HR 125 BPM. WITH IV ACCESS ON ANN #18G, INFUSING D5 1/2 NS AT 75CC/HR, TOLERATING WELL. GT IN PLACE, CLAMPED ORDERED NPO AT THIS TIME. ON PUREWICK CONNECTED TO CONTINUOUS WALL SUCTION WITH BRANDON COLORED URINE, 500CC OUTPUT. KEPT HOB ELEVATED, PER PATIENT'S COMFORT. SAFETY MEASURES IMPLEMENTED PER UNIT PROTOCOL. ENDORSED TO ONCOMING RN FOR CONTINUITY OF CARE.
--- NOTE | 2025-09-12 07:38 | NUR ---
RN OPENING NOTE RECEIVED PATIENT IN BED, ASLEEP, EASILY AROUSABLE, WITH T-PIECE, ON COOL AEROSOL, LEGALLY BLIND PER ENDORSEMENT. ON TELE - ST IN THE 120S. HAS A PUREWICK ON. HE HAS A SACRAL WOUND, AND BILATERAL HEEL DRYNESS, HAS SCARS WELL. HE IS NPO, G-TUBE CLAMPED. HE HAS IV ACCESS ON THE LEFT UPPER ARM GAUGE #18, D5 1/2 NS @ 75 CC/HR INFUSING WELL. BE IN LOW AND LOCKED POSITION, SIDE RAILS UP X3, CALL LIGHT WITHIN REACH, AND OTHER SAFETY MEASURES WERE IMPLEMENTED.
[2025-09-12 08:30] LABS: PLATELET COUNT (AUTO) 308 K/uL (150-450); RED BLOOD CELL COUNT(AUTO) 4.09 MIL/uL (4.5-6.0); RED CELL DISTRIBUTION WIDTH 17.1 % (11.5-15.0); WHITE BLOOD COUNT (AUTO) 12.6 K/uL (4.3-11.0)
[2025-09-12] MEDS: ZINC SULFATE 220 MG CAPSULE GT SCH (08:57)
[2025-09-12] MEDS: ASCORBIC ACID 500 MG TABLET GT SCH (08:57)
[2025-09-12] MEDS: DOCUSATE SODIUM LIQ 100 MG/10 ML UDC NG SCH (08:57)
[2025-09-12] MEDS: PROSOURCE / PROSTAT (PYXIS) 30 ML UDC GT SCH (08:57)
[2025-09-12] MEDS: MULTIVITAMINS,THERAGRAN 1 UDTAB TABLET GT SCH (08:57)
[2025-09-12] MEDS: THERAHONEY GEL 1.5 OZ TUBE TP SCH (08:58)
[2025-09-12] MEDS: ENOXAPARIN SODIUM 40 MG/0.4 ML DISP.SYRIN SQ SCH (09:02)
[2025-09-12 09:07] LABS: ASPARTATE AMINOTRANSFERASE 18.0 U/L (15-37); CALCIUM, SERUM 9.5 mg/dL (8.5-10.1); CREATININE 1.4 mg/dL (0.6-1.3); PHOSPHORUS 3.9 mg/dL (2.5-4.9); SODIUM SERUM 131.0 mmol/L (136-145); TOTAL PROTEIN, SERUM 6.4 g/dL (6.4-8.2); UREA NITROGEN, BLOOD 29.0 mg/dL (7-18)
[2025-09-12 09:08] LABS: CREATINE KINASE, TOTAL 236.0 U/L (39-308)
[2025-09-12] MEDS: IV NS 0.9% 1,000 ML IV SCH (10:29)
--- NOTE | 2025-09-12 12:16 | NUR ---
RN NOTE - HOME MEDS TRIED TO CALL PATIENT'S DAUGHTER, JUAREZ @ TO ASK IF SHE CAN BRING PATIENT'S HOME MEDS. UNABLE TO REACH HER. UNABLE TO LEAVE A VM TOO. WILL TRY AGAIN LATER
[2025-09-12] MEDS: VITAL AF 1.2 1,000 ML BOTTLE GT PRN (13:15)
--- NOTE | 2025-09-12 19:25 | NUR ---
TEXTILE PIN WORKER OPENING NOTE RECEIVED PATIENT IN BED ON SEMI-FOWLERS POSITION. PATIENT OBTUNDED WITH EYES CLOSED, NO FACIAL GRIMACING NOTED. WITH TRACH IN PLACE CONNECTED TO COOL AEROSOL VIA T-PIECE, TOLERATING WELL AT 35% FI02 AT 8LPM O2, WITH SPO2 100%, ATTENDED BY RT ASSIGNED. ON EXTERNAL FINANCE BUSINESS PARTNER CURRENTLY READING ST, HR 107 BPM. WITH IV ACCESS ON ANN #[id number], INFUSING NS AT 75CC/HR, TOLERATING WELL. GT IN PLACE RUNNING VITAL AF AT 10CC/MIN, TOLERATING FAIRLY, KEPT HOB ELEVATED FOR ASPIRATION PRECAUTIONS. ON PUREWICK CONNECTED TO CONTINUOUS WALL SUCTION WITH BRANDON COLORED URINE. KEPT HOB ELEVATED, PER PATIENT'S COMFORT. SAFETY MEASURES IMPLEMENTED PER UNIT PROTOCOL. WILL CONTINUE WITH ONGOING PLAN OF CARE.
--- NOTE | 2025-09-12 19:36 | NUR ---
RN CLOSING NOTE LEFT PATIENT IN BED, WITH T-PIECE, 8L O2 TOLERATING WELL WITH NO SIGNS OF ACUTE RESPIRATORY DISTRESS. ALL DUE MEDS WERE GIVEN. ALL NEEDS WERE ATTENDED TO. TURNED AND REPOSITIONED EVERY 2 HOURS. WOUND CARE DONE. ENDORSED TO ADINA OGLESBY FOR CONTINUITY OF CARE.
--- NOTE | 2025-09-12 19:54 | NUR ---
RECEIVED PT ON C/A 35% 8LPM. BILATERAL B/S AUSCULTATED, NO RESPIRATORY DISTRESS OR SOB NOTED. SUCTION PT Q2/PRN, TRACH IS SECURED/PATENT/INLINE.
[2025-09-12] MEDS ORDERED: VANCOMYCIN 1 GM in IV D5W 250ml IV SCH (22:00)
[2025-09-13] VITALS: BP 104/72; TEMP 97.7; O2SAT 99
[2025-09-13 03:47] VITALS: O2SAT 100
[2025-09-13 04:00] VITALS: BP 111/71; TEMP 97.5; O2SAT 99
--- NOTE | 2025-09-13 06:35 | NUR ---
TALENT ANALYST CLOSING NOTE PATIENT REMAINS IN BED ON SEMI-FOWLERS POSITION. PATIENT OBTUNDED WITH EYES OPEN, NO FACIAL GRIMACING NOTED. WITH TRACH IN PLACE CONNECTED TO COOL AEROSOL VIA T-PIECE, TOLERATING WELL AT 35% FI02 AT 8LPM O2, WITH SPO2 99%, SUCTIONED SECRETIONS PRN. ON EXTERNAL DERMATOLOGY TEACHER CURRENTLY READING ST, HR 102 BPM. WITH IV ACCESS ON ANN #18G, INFUSING NS AT 75CC/HR, WELL TOLERATED. WITH GT INTACT RUNNING TF: VITAL AF AT 30CC/MIN, TOLERATING FAIRLY, INCREASED BY 10CC Q 8HRS TOLERATED WITH GOAL 70CC/HR, NO RESIDUAL OBTAINED. KEPT HOB ELEVATED FOR ASPIRATION PRECAUTIONS. ON PUREWICK CONNECTED TO CONTINUOUS WALL SUCTION WITH BRANDON COLORED URINE, 500CC OUTPUT. SAFETY MEASURES IMPLEMENTED PER UNIT PROTOCOL. WILL ENDORSE TO ONCOMING DAY SHIFT RN FOR CONTINUITY OF CARE.
--- NOTE | 2025-09-13 07:30 | NUR ---
RN OPENING NOTE RECEIVED PATIENT IN BED, OBTUNDED, WITH T-PIECE ON 8L COOL AEROSOL, TOLERATING WELL, WITH CONTINUOUS PULSE OX AT BEDSIDE SATURATING 99%. HE IS ON TELE - SINUS TACH 110. HE HAS A PUREWICK ON. HE HAS A SACRAL WOUND, LEFT AND RIGHT EAR LESION, BILATERAL HEEL DRYNESS. HAS G-TUBE, ON G-TUBE FEEDING VITAL AF 1.2 @ 30 CC/HR, TOLERATED PER NIGHT NURSE ADINA. WITH IV ACCESS ON THE LEFT UPPER ARM GAUGE #18, NS @ 75 CC/HR INFUSING WELL. BED IN LOW AND LOCKED POSITION, SIDE RAILS UP X3, CALL LIGHT WITHIN REACH, AND OTHER SAFETY MEASURES WERE IMPLEMENTED.
[2025-09-13 07:51] LABS: CALCIUM, SERUM 9.6 mg/dL (8.5-10.1); CREATININE 1.2 mg/dL (0.6-1.3); SODIUM SERUM 135.0 mmol/L (136-145); UREA NITROGEN, BLOOD 25.0 mg/dL (7-18)
[2025-09-13] MEDS ORDERED: IV NS 0.9% 1,000 ML IV PRN (07:56)
[2025-09-13 08:00] VITALS: BP 110/75; TEMP 97.8; O2SAT 100; O2SAT 99
--- NOTE | 2025-09-13 08:14 | NUR ---
RN NOTE - BLADDER SCAN DID A BLADDER SCAN - PATIENT IS RETAINING > [address] QUIÑONEZ TO GET AN ORDER FOR BERMEO CATHETER INSERTION
[2025-09-13] MEDS: PANTOPRAZOLE 40 MG/PACK PACK GT SCH (09:47)
--- NOTE | 2025-09-13 10:44 | NUR ---
RN NOTE REPORT GIVEN TO LINCOLN OGLESBY OF [facility]
[2025-09-13 11:50] VITALS: O2SAT 98
[2025-09-13 12:00] VITALS: BP 114/71; TEMP 97.7; O2SAT 99
--- NOTE | 2025-09-13 12:26 | NUR ---
TAG METER OPERATOR NOTE RECEIVED DISCHARGE ORDERS FROM [facility]BY QUIÑONEZ. DISCHARGE EXIT CARE DONE - DISCHARGE PAPERS WERE SIGNED BY ME AND NIKI PEOPLES RN SINCE PATIENT IS UNABLE TO. PATIENT DOES NOT HAVE ANY BELONGINGS. VITAL SIGNS WERE CHECKED AND ARE ALL WNL. ALL DUE MEDS WERE GIVEN. ALL NEEDS WERE ATTENDED TO. BERMEO CATHETER AND MIDLINE WERE KEPT IN PLACE. REPORT GIVEN TO LINCOLN OGLESBY OF [facility] [place]. DISCHARGED IN STABLE CONDITION @ 1215H.
[2025-09-13 16:29] LABS: APPEARANCE,URINE SLIGHTLY CLOUDY (CLEAR); BLOOD, URINE 2+ Ery/uL (NEGATIVE); LEUKOCYTE ESTERASE ,URINE NEGATIVE (NEGATIVE); NITRITE, URINE NEGATIVE (NEGATIVE); UGLUCOSE TRACE mg/dL (NEGATIVE)
[2025-09-13 16:35] LABS: ADD URINE CULTURE NO; HYALINE CASTS, URINE Few /LPF (None Seen)
[2025-09-13 16:38] LABS: CREATININE, URINE 71.8 MG/DL (30.0-125.0); URINE SODIUM, RANDOM 53.0 mmol/l (40-220); URINE TOTAL PROTEIN 135.8 mg/dL (0-11.9)
[2025-09-13 18:01] LABS: EOSINOPHIL,URINE None Seen
[2025-09-13 18:17] LABS: SQUAMOUS EPITHELIAL CELL,UR 0-2 /HPF (None Seen)
[2025-09-14 06:11] LABS: PTH, INTACT 13 pg/mL (15-65)
[2025-09-17 04:07] LABS: *SPE A/G RATIO 0.6 (0.7-1.7); *SPE ALBUMIN 2.0 g/dL (2.9-4.4); *SPE ALPHA-1-GLOBULIN 0.4 g/dL (0.0-0.4); *SPE ALPHA-2-GLOBULIN 1.2 g/dL (0.4-1.0); *SPE BETA GLOBULIN 1.0 g/dL (0.7-1.3); *SPE GLOBULIN, TOTAL 3.5 g/dL (2.2-3.9); *SPE M-SPIKE Not Observed g/dL (Not Observed); *SPE PROTEIN TOTAL 5.5 g/dL (6.0-8.5); *SPEGAMMA GLOBULIN 0.9 g/dL (0.4-1.8)
== END 2025-09-13 12:20 | DRG 871 ==
LOC: ER 15:52 → MEDSG1 19:41 → TELE1 22:21
PROVIDERS: ADMIT Nurse Practitioner Family; ATTEND Nurse Practitioner Acute Care
DX: A41.9 Sepsis, unspecified organism (principal); G93.41 Metabolic encephalopathy; L89.154 Pressure ulcer of sacral region, stage 4; J15.69 Pneumonia due to other Gram-negative bacteria; J96.21 Acute and chronic respiratory failure with hypoxia; J69.0 Pneumonitis due to inhalation of food and vomit; G93.1 Anoxic brain damage, not elsewhere classified; C15.9 Malignant neoplasm of esophagus, unspecified; S22.43XA Multiple fractures of ribs, bilateral, initial encounter for closed fracture; K92.2 Gastrointestinal hemorrhage, unspecified; N17.9 Acute kidney failure, unspecified; Z93.0 Tracheostomy status; E44.0 Moderate protein-calorie malnutrition; I12.9 Hypertensive chronic kidney disease with stage 1 through stage 4 chronic kidney disease, or unspecified chronic kidney disease; N18.30 Chronic kidney disease, stage 3 unspecified; G40.909 Epilepsy, unspecified, not intractable, without status epilepticus; D63.1 Anemia in chronic kidney disease; E87.1 Hypo-osmolality and hyponatremia; D68.59 Other primary thrombophilia; E88.09 Other disorders of plasma-protein metabolism, not elsewhere classified; E78.5 Hyperlipidemia, unspecified; Z86.73 Personal history of transient ischemic attack (TIA), and cerebral infarction without residual deficits; Z87.11 Personal history of peptic ulcer disease; Z93.1 Gastrostomy status; Z95.5 Presence of coronary angioplasty implant and graft; H54.3 Unqualified visual loss, both eyes; I25.10 Atherosclerotic heart disease of native coronary artery without angina pectoris; Z74.09 Other reduced mobility; Z86.74 Personal history of sudden cardiac arrest; K21.9 Gastro-esophageal reflux disease without esophagitis; Z86.19 Personal history of other infectious and parasitic diseases; R13.10 Dysphagia, unspecified; L89.816 Pressure-induced deep tissue damage of head; L98.8 Other specified disorders of the skin and subcutaneous tissue; X58.XXXA Exposure to other specified factors, initial encounter; Y93.9 Activity, unspecified; Z90.49 Acquired absence of other specified parts of digestive tract; Y92.129 Unspecified place in nursing home as the place of occurrence of the external cause; Z68.23 Body mass index [BMI] 23.0-23.9, adult
CPT/HCPCS: 31720; 36415; 70498-TC; 80048-TC; 80053-TC; 80202-TC; 81001; 82248-TC; 82550-TC; 82570-TC; 83605-TC; 83690-TC; 83735-TC; 83970; 84100-TC; 84155; 84165; 84300-TC; 84484-TC; 85025-TC; 85027-TC; 85610-TC; 86850-TC; 87040-TC; 87081-TC; 93971-TC; 94640-TC; 94760-TC; 94762-TC; 94799-TC; A4223; A6213; A6403; A7526; G0378; J0692; J1650; J1953; J2470; J2720; J3373; J3374; J3480; J3490; J7030; J7040; J7050; J7060; Q9967